=== PATIENT | female | born 1960 | race African-American/Black ===

== ENCOUNTER 2021-09-12 07:48 | Inpatient (IN) | payer MEDICAID ==
[~2021-09-12] VITALS: Ht 170.2 cm; Wt 64.6 kg
[2021-09-12 09:10] LABS: BASOPHILS % 0.6 % (0.0-2.0); EOSINOPHILS % 0.5 % (0.0-5.0); HEMATOCRIT. 44.3 % (36.0-48.0); HEMOGLOBIN. 14.5 g/dL (12.0-16.0); LYMPHOCYTES % 14.8 % (20.0-50.0); MEAN CORPUSCULAR HEMOGLOBIN 28.5 pg (28.0-32.0); MEAN CORPUSCULAR VOLUME 87.2 fL (81.0-99.0); MEAN PLATELET VOLUME 9.4 fl (7.4-10.4); MONOCYTES % 3.3 % (2.0-8.0); NEUTROPHILS % 80.8 % (40.0-76.0); PLATELET 202 x1000/uL (130-400); RED BLOOD CELL COUNT 5.08 mill/uL (4.2-5.4); RED CELL DISTRIBUTION WIDTH 15.5 % (11.6-14.6)
[2021-09-12 09:17] LABS: CHLORIDE 115 mEq/L (98-107)
[2021-09-12] MEDS ORDERED: DOCUSATE SODIUM 100MG CAPSULE PO PRN (13:15)
[2021-09-12] MEDS ORDERED: ZOLPIDEM TARTRATE 5MG TABLET PO PRN (13:15)
[2021-09-12] MEDS ORDERED: GUAIFENESIN 200MG/10ML SUGAR FREE UDC PO PRN (13:15)
[2021-09-12] MEDS ORDERED: ONDANSETRON HCL 4MG/2ML INJ IV PRN (13:15)
[2021-09-12] MEDS ORDERED: ACETAMINOPHEN 325MG TABLET PO PRN ×2 (13:15)
[2021-09-12] MEDS ORDERED: KETOROLAC 15MG/ML VIAL IV PRN (13:15)
[2021-09-12] MEDS ORDERED: NITROGLYCERIN 0.4MG TABLET SL SL PRN (13:15)
[2021-09-12] MEDS ORDERED: MAGNESIUM/ALUMINUM HYDROXIDE/SIMETHICONE 30ML UDC PO PRN (13:15)
[2021-09-12] MEDS ORDERED: CLONIDINE 0.1MG TABLET PO PRN (13:15)
[2021-09-12 13:53] LABS: ETHANOL BLOOD < 10 mg/dL; HDL CHOLESTEROL 63 mg/dL (40-59); LDL CHOLESTEROL 76 mg/dL (5-100); TOTAL IRON BINDING CAPACITY 240 ug/dL (250-450)
[2021-09-12] MEDS: IPRATROPIUM/ALBUTEROL 0.5-3(2.5)MG/3ML NEB NEB PRN (14:13)
[2021-09-12] MEDS: ENOXAPARIN 40MG/0.4ML SYR SUBCUT SCH (14:22)
[2021-09-12 14:28] LABS: VITAMIN B12 SERUM 461 pg/mL (211-911)
[2021-09-12 14:44] LABS: FOLIC ACID (FOLATE) SERUM > 20.00 ng/mL (>5.38)
[2021-09-12 15:50] VITALS: BP 129/106
[2021-09-12 17:00] VITALS: BP 129/106
[2021-09-12] MEDS ORDERED: ASPI-1406 MT (17:31)
[2021-09-12] MEDS ORDERED: CHOL2000 (17:31)
[2021-09-12] MEDS ORDERED: FURO-152 PO (17:31)
[2021-09-12] MEDS ORDERED: EMPA10TA MT (17:31)
[2021-09-12] MEDS ORDERED: METO25TA6 MT (17:31)
[2021-09-12] MEDS ORDERED: LOSA25TA26 MT (17:31)
[2021-09-12] MEDS ORDERED: BICT1TAB PO (17:31)
[2021-09-12] MEDS ORDERED: ATOR-2 MT (17:31)
[2021-09-12] MEDS ORDERED: CARV6.2548 MT (17:31)
[2021-09-12] MEDS: INSULIN LISPRO 100 UNITS/ML SUBCUT SCH ×2 (17:40→20:42)
[2021-09-12] MEDS ORDERED: DEXTROSE 50% WATER 50ML SYRINGE IV PRN (17:45)
[2021-09-12] MEDS ORDERED: *PATIENT'S OWN MEDICATION STORAGE XX SCH (18:45)
[2021-09-12 19:21] LABS: CREATINE KINASE MB FRACTION 2.7 ng/mL (0.5-3.6)
[2021-09-12 20:00] VITALS: BP 115/90
[2021-09-12] MEDS: FUROSEMIDE 40MG/4ML VIAL IVP SCH (20:40)
[2021-09-12] MEDS: BLOOD SUGAR DIAGNOSTIC STRIP TEST SCH (20:41)
[2021-09-12] MEDS: SPIRONOLACTONE 25MG TABLET PO SCH (20:41)
[2021-09-12] MEDS: ATORVASTATIN CALCIUM 40MG TABLET PO SCH (20:41)
[2021-09-12] MEDS: FAMOTIDINE 20MG TABLET PO SCH (20:41)
[2021-09-12 23:23] LABS: CREATINE KINASE MB FRACTION 2.9 ng/mL (0.5-3.6)
[2021-09-13] VITALS: BP 119/62
[2021-09-13 01:03] LABS: *AMPHETAMINES SCREEN URINE NEGATIVE (NEGATIVE); *BARBITURATES SCREEN URINE NEGATIVE (NEGATIVE); *BENZODIAZEPINES SCREEN URINE NEGATIVE (NEGATIVE); *COCAINE SCREEN URINE NEGATIVE (NEGATIVE); CANNABINOID URINE SCREEN NEGATIVE (NEGATIVE); METHADONE URINE SCREEN NEGATIVE (NEGATIVE); OPIATES URINE SCREEN NEGATIVE (NEGATIVE); PHENCYCLIDINE URINE SCREEN NEGATIVE (NEGATIVE)
[2021-09-13] MEDS: IPRATROPIUM/ALBUTEROL 0.5-3(2.5)MG/3ML NEB NEB PRN ×2 (03:31→10:02)
[2021-09-13 04:00] VITALS: BP 102/66
[2021-09-13] MEDS: BLOOD SUGAR DIAGNOSTIC STRIP TEST SCH ×4 (06:46→20:58)
[2021-09-13] MEDS: INSULIN LISPRO 100 UNITS/ML SUBCUT SCH ×4 (06:46→20:58)
[2021-09-13 07:38] LABS: BASOPHILS % 0.4 % (0.0-2.0); EOSINOPHILS % 2.7 % (0.0-5.0); HEMATOCRIT. 41.2 % (36.0-48.0); HEMOGLOBIN. 13.7 g/dL (12.0-16.0); LYMPHOCYTES % 30.4 % (20.0-50.0); MEAN CORPUSCULAR HEMOGLOBIN 29.1 pg (28.0-32.0); MEAN CORPUSCULAR VOLUME 87.3 fL (81.0-99.0); MEAN PLATELET VOLUME 9.5 fl (7.4-10.4); MONOCYTES % 5.8 % (2.0-8.0); NEUTROPHILS % 60.7 % (40.0-76.0); PLATELET 169 x1000/uL (130-400); RED BLOOD CELL COUNT 4.71 mill/uL (4.2-5.4); RED CELL DISTRIBUTION WIDTH 15.4 % (11.6-14.6)
[2021-09-13 07:44] LABS: CHLORIDE 113 mEq/L (98-107)
[2021-09-13 08:00] VITALS: BP 111/89
[2021-09-13] MEDS ORDERED: ASPIRIN 325MG EC TABLET PO SCH (09:00)
[2021-09-13] MEDS: FAMOTIDINE 20MG TABLET PO SCH ×2 (09:13→20:57)
[2021-09-13] MEDS: SPIRONOLACTONE 25MG TABLET PO SCH (09:14)
[2021-09-13] MEDS: LOSARTAN POTASSIUM 25 MG TABLET PO SCH (09:14)
[2021-09-13] MEDS: BIKTARVY PO SCH (09:15)
[2021-09-13] MEDS: JARDIANCE 10MG PO SCH (09:16)
[2021-09-13] MEDS: FUROSEMIDE 40MG/4ML VIAL IVP SCH ×2 (09:33→17:58)
[2021-09-13 12:00] VITALS: BP 103/69
[2021-09-13] MEDS: NICOTINE 14MG PATCH TD SCH (12:59)
[2021-09-13] MEDS: ENOXAPARIN 40MG/0.4ML SYR SUBCUT SCH (15:24)
[2021-09-13 16:00] VITALS: BP 107/74
[2021-09-13 20:00] VITALS: BP 92/52
[2021-09-13] MEDS: BUDESONIDE 0.5MG/2ML NEB HHN SCH (20:15)
[2021-09-13] MEDS: IPRATROPIUM/ALBUTEROL 0.5-3(2.5)MG/3ML NEB HHN SCH (20:15)
[2021-09-13] MEDS: ATORVASTATIN CALCIUM 40MG TABLET PO SCH (20:57)
[2021-09-14] VITALS: BP 99/71
[2021-09-14] MEDS: IPRATROPIUM/ALBUTEROL 0.5-3(2.5)MG/3ML NEB HHN SCH ×4 (02:02→19:55)
[2021-09-14 04:00] VITALS: BP 142/115
[2021-09-14] MEDS: FUROSEMIDE 40MG/4ML VIAL IVP SCH ×2 (05:02→17:16)
[2021-09-14] MEDS: BLOOD SUGAR DIAGNOSTIC STRIP TEST SCH ×4 (05:36→21:21)
[2021-09-14] MEDS: INSULIN LISPRO 100 UNITS/ML SUBCUT SCH ×4 (05:54→21:00)
[2021-09-14 08:00] VITALS: BP 139/115
[2021-09-14] MEDS: LOSARTAN POTASSIUM 25 MG TABLET PO SCH (08:26)
[2021-09-14] MEDS: SPIRONOLACTONE 25MG TABLET PO SCH (08:26)
[2021-09-14] MEDS: NICOTINE 14MG PATCH TD SCH (08:26)
[2021-09-14] MEDS: FAMOTIDINE 20MG TABLET PO SCH ×2 (08:27→21:22)
[2021-09-14] MEDS: BIKTARVY PO SCH (08:27)
[2021-09-14] MEDS: JARDIANCE 10MG PO SCH (08:27)
[2021-09-14] MEDS: ASPIRIN 81MG EC TABLET PO SCH (08:27)
[2021-09-14] MEDS: BUDESONIDE 0.5MG/2ML NEB HHN SCH ×2 (09:39→20:27)
[2021-09-14 12:00] VITALS: BP 91/69
[2021-09-14] MEDS ORDERED: PHENYTOIN SODIUM EXTENDED 100MG CAPSULE PO SCH (14:00)
[2021-09-14] MEDS: ENOXAPARIN 40MG/0.4ML SYR SUBCUT SCH (14:16)
[2021-09-14 16:00] VITALS: BP 94/59
[2021-09-14 20:00] VITALS: BP 99/65
[2021-09-14] MEDS: ATORVASTATIN CALCIUM 40MG TABLET PO SCH (21:22)
[2021-09-15] VITALS: BP 96/69
[2021-09-15] MEDS: IPRATROPIUM/ALBUTEROL 0.5-3(2.5)MG/3ML NEB HHN SCH ×4 (02:18→21:29)
[2021-09-15 04:00] VITALS: BP 104/75
[2021-09-15] MEDS: FUROSEMIDE 40MG/4ML VIAL IVP SCH ×2 (06:04→18:17)
[2021-09-15] MEDS: BLOOD SUGAR DIAGNOSTIC STRIP TEST SCH ×4 (06:40→20:14)
[2021-09-15] MEDS: INSULIN LISPRO 100 UNITS/ML SUBCUT SCH ×4 (06:41→20:44)
[2021-09-15 07:48] VITALS: BP 98/76
[2021-09-15] MEDS: LOSARTAN POTASSIUM 25 MG TABLET PO SCH (09:00)
[2021-09-15] MEDS: BIKTARVY PO SCH (10:11)
[2021-09-15] MEDS: ASPIRIN 81MG EC TABLET PO SCH (10:11)
[2021-09-15] MEDS: FAMOTIDINE 20MG TABLET PO SCH ×2 (10:11→20:14)
[2021-09-15] MEDS: NICOTINE 14MG PATCH TD SCH (10:11)
[2021-09-15] MEDS: JARDIANCE 10MG PO SCH (10:12)
[2021-09-15] MEDS: SPIRONOLACTONE 25MG TABLET PO SCH (10:23)
[2021-09-15] MEDS: BUDESONIDE 0.5MG/2ML NEB HHN SCH ×2 (10:51→21:34)
[2021-09-15 12:00] VITALS: BP 114/80
[2021-09-15] MEDS: ENOXAPARIN 40MG/0.4ML SYR SUBCUT SCH (13:31)
[2021-09-15 16:00] VITALS: BP 106/68
[2021-09-15 20:00] VITALS: BP 108/72
[2021-09-15] MEDS: ATORVASTATIN CALCIUM 40MG TABLET PO SCH (20:14)
[2021-09-16] VITALS: BP 114/86
[2021-09-16] MEDS: IPRATROPIUM/ALBUTEROL 0.5-3(2.5)MG/3ML NEB HHN SCH ×2 (01:55→15:11)
[2021-09-16 04:00] VITALS: BP 101/76
[2021-09-16 06:08] VITALS: BP 117/81
[2021-09-16] MEDS: FUROSEMIDE 40MG/4ML VIAL IVP SCH (06:08)
[2021-09-16] MEDS ORDERED: HEPARIN SODIUM 1,000 UNIT/1ML VIAL IV ONE (06:22)
[2021-09-16] MEDS ORDERED: NICARDIPINE 100MCG/ML 10ML VIAL (CATH LAB) IV ONE (06:22)
[2021-09-16] MEDS ORDERED: NITROGLYCERIN 50MCG/ML 10ML VIAL (CATH LAB) IV ONE (06:22)
[2021-09-16] MEDS: INSULIN LISPRO 100 UNITS/ML SUBCUT SCH ×2 (06:32→12:40)
[2021-09-16] MEDS: BLOOD SUGAR DIAGNOSTIC STRIP TEST SCH ×2 (06:32→12:10)
[2021-09-16 07:43] VITALS: BP 101/71
[2021-09-16] MEDS ORDERED: LIDOCAINE HCL 1% 10 MG/ML 10ML VIAL ONE (08:15)
[2021-09-16] MEDS ORDERED: MIDAZOLAM HCL 2 MG/2 ML VIAL ONE (08:15)
[2021-09-16] MEDS ORDERED: IODIXANOL 320MG/ML 100 ML BOTTLE IV ONE (08:16)
[2021-09-16] MEDS ORDERED: DIPHENHYDRAMINE 50MG/ML VIAL ONE (08:17)
[2021-09-16] MEDS ORDERED: FENTANYL CITRATE/PF 50MCG/ML 2ML VIAL ONE (08:17)
[2021-09-16] MEDS ORDERED: VERAPAMIL HCL 2.5 MG/1 ML 2ML VIAL IV ONE (08:17)
[2021-09-16] MEDS ORDERED: ATROPINE SULFATE 1MG/10ML SYR IV PRN (09:45)
[2021-09-16] MEDS ORDERED: ALD50 MT (10:18)
[2021-09-16] MEDS ORDERED: FURO-151 MT (10:18)
[2021-09-16] MEDS: LOSARTAN POTASSIUM 25 MG TABLET PO SCH (12:03)
[2021-09-16] MEDS: SPIRONOLACTONE 25MG TABLET PO SCH (12:03)
[2021-09-16] MEDS: FAMOTIDINE 20MG TABLET PO SCH (12:03)
[2021-09-16] MEDS: BIKTARVY PO SCH (12:03)
[2021-09-16] MEDS: NICOTINE 14MG PATCH TD SCH (12:03)
[2021-09-16] MEDS: ASPIRIN 81MG EC TABLET PO SCH (12:03)
[2021-09-16] MEDS: JARDIANCE 10MG PO SCH (12:04)
[2021-09-16 12:18] VITALS: BP 130/94
[2021-09-16] MEDS: ENOXAPARIN 40MG/0.4ML SYR SUBCUT SCH (14:00)
[2021-09-16 14:22] LABS: CHLORIDE 103 mEq/L (98-107)
[2021-09-16] MEDS: BUDESONIDE 0.5MG/2ML NEB HHN SCH (15:11)
== END 2021-09-16 17:20 | disposition home or self-care (01) | DRG 192 ==
LOC: ER 07:48 → 8WST 12:50 → EDBEDREQ 12:52 → EDBEDREQTM 12:52 → ENRESERV 13:16
PROVIDERS: ADMIT Internal Medicine; ATTEND Internal Medicine
PROC: 4A023N7 Measurement of Cardiac Sampling and Pressure, Left Heart, Percutaneous Approach (ICD-10-PCS; principal; 2021-09-16)
PROC: B211YZZ Fluoroscopy of Multiple Coronary Arteries using Other Contrast (ICD-10-PCS; 2021-09-16)
DX: I11.0 Hypertensive heart disease with heart failure (principal); J96.01 Acute respiratory failure with hypoxia; I21.4 Non-ST elevation (NSTEMI) myocardial infarction; I50.43 Acute on chronic combined systolic (congestive) and diastolic (congestive) heart failure; J44.9 Chronic obstructive pulmonary disease, unspecified; Z20.822 Contact with and (suspected) exposure to COVID-19; E78.00 Pure hypercholesterolemia, unspecified; E11.9 Type 2 diabetes mellitus without complications; E78.5 Hyperlipidemia, unspecified; Z21 Asymptomatic human immunodeficiency virus [HIV] infection status; I42.0 Dilated cardiomyopathy; I25.10 Atherosclerotic heart disease of native coronary artery without angina pectoris; F17.210 Nicotine dependence, cigarettes, uncomplicated; Z79.4 Long term (current) use of insulin
CPT/HCPCS: 36415; 71045; 80048; 80053; 80061; 80305; 80320; 82550; 82553; 82607; 82746; 82962; 83036; 83540; 83550; 83605; 83735; 83880; 84100; 84443; 84484; 85025; 87426; 93005; 93306; 93458; 93923; 93970; 94640; 94664; 99285; C1769; C1887; C1893; J1200; J1644; J1650; J1885; J1940; J2250; J3010; J3490; J7626; Q9967; G0480

== ENCOUNTER 2022-04-29 14:08 | Inpatient (IN) | payer MEDICAID ==
[~2022-04-29] VITALS: Ht 167.6 cm; Wt 54.9 kg
[2022-04-29] MEDS: ALBUTEROL (0.083%) 2.5MG/3ML NEB HHN SCH (00:58)
[2022-04-29] MEDS: IPRATROPIUM BROMIDE (0.02%) 0.5MG/2.5ML NEB HHN SCH (00:58)
[~2022-04-29 14:08] MED LIST: ASPI-1406 MT; ATOR-2 MT; BICT1TAB PO; CARV6.2548 MT; CHOL2000; EMPA10TA MT; FURO-152 PO; LOSA25TA26 MT; METO25TA6 MT
[2022-04-29] MEDS ORDERED: IPRATROPIUM/ALBUTEROL 0.5-3(2.5)MG/3ML NEB HHN ONE (14:30)
[2022-04-29] MEDS ORDERED: METHYLPREDNISOLONE SOD SUCC 125 MG/2 ML VIAL IV ONE (14:30)
[2022-04-29] MEDS ORDERED: MAGNESIUM 2 G PREMIX 50 ML IV ONE (14:30)
[2022-04-29 16:30] LABS: BASOPHILS % 0.6 % (0.0-2.0); EOSINOPHILS % 1.1 % (0.0-5.0); HEMATOCRIT. 51.1 % (36.0-48.0); HEMOGLOBIN. 16.7 g/dL (12.0-16.0); LYMPHOCYTES % 37.9 % (20.0-50.0); MEAN CORPUSCULAR VOLUME 91.6 fL (81.0-99.0); MEAN PLATELET VOLUME 9.2 fl (7.4-10.4); MONOCYTES % 13.6 % (2.0-8.0); NEUTROPHILS % 46.8 % (40.0-76.0); PLATELET 172 x1000/uL (130-400); RED BLOOD CELL COUNT 5.58 mill/uL (4.2-5.4); RED CELL DISTRIBUTION WIDTH 15.1 % (11.6-14.6)
[2022-04-29 16:32] LABS: INR 1.2; PROTHROMBIN TIME 12.7 sec (9.6-11.0)
[2022-04-29 16:33] LABS: CHLORIDE 107 mEq/L (98-107)
[2022-04-29] MEDS ORDERED: ASPIRIN 325MG EC TABLET PO ONE (17:00)
[2022-04-29] MEDS ORDERED: METHYLPREDNISOLONE SOD SUCC 125 MG/2 ML VIAL IV NR (17:15)
[2022-04-29] MEDS ORDERED: MAGNESIUM 2 G PREMIX 50 ML IV NR (17:30)
[2022-04-29] MEDS ORDERED: CLONIDINE 0.1MG TABLET PO PRN (17:45)
[2022-04-29] MEDS ORDERED: ACETAMINOPHEN 325MG TABLET PO PRN ×2 (17:45)
[2022-04-29] MEDS ORDERED: IPRATROPIUM/ALBUTEROL 0.5-3(2.5)MG/3ML NEB HHN SCH (17:45)
[2022-04-29] MEDS ORDERED: ONDANSETRON HCL 4MG/2ML INJ IV PRN (17:45)
[2022-04-29] MEDS ORDERED: DOCUSATE SODIUM 100MG CAPSULE PO PRN (17:45)
[2022-04-29] MEDS ORDERED: GUAIFENESIN 200MG/10ML SUGAR FREE UDC PO PRN (17:45)
[2022-04-29] MEDS ORDERED: ALBUTEROL (0.083%) 2.5MG/3ML NEB HHN PRN (18:00)
[2022-04-29] MEDS ORDERED: IPRATROPIUM BROMIDE (0.02%) 0.5MG/2.5ML NEB HHN PRN (18:00)
[2022-04-29] MEDS ORDERED: FUROSEMIDE 20MG TABLET PO SCH (19:00)
[2022-04-29] MEDS ORDERED: ASPIRIN 81MG TABLET PO NR (19:00)
[2022-04-29] MEDS ORDERED: ENOXAPARIN 30MG/0.3ML SYR SUBCUT SCH (20:00)
[2022-04-29] MEDS ORDERED: ATORVASTATIN CALCIUM 40MG TABLET PO SCH (21:00)
[2022-04-29] MEDS ORDERED: FAMOTIDINE 20MG TABLET PO SCH (21:00)
[2022-04-30 02:23] VITALS: BP 120/92
[2022-04-30 04:00] VITALS: BP 123/85
[2022-04-30] MEDS ORDERED: *PATIENT'S OWN MEDICATION STORAGE XX SCH (05:45)
[2022-04-30 08:00] VITALS: BP 137/89
[2022-04-30] MEDS: ALBUTEROL (0.083%) 2.5MG/3ML NEB HHN SCH ×3 (08:10→16:32)
[2022-04-30] MEDS: IPRATROPIUM BROMIDE (0.02%) 0.5MG/2.5ML NEB HHN SCH ×3 (08:10→16:31)
[2022-04-30] MEDS ORDERED: PREDNISONE 20MG TABLET PO SCH (09:00)
[2022-04-30] MEDS ORDERED: SPIRONOLACTONE 25MG TABLET PO SCH (09:00)
[2022-04-30] MEDS ORDERED: BUDESONIDE 0.25MG/2ML NEB HHN SCH (09:00)
[2022-04-30] MEDS ORDERED: LOSARTAN POTASSIUM 25 MG TABLET PO SCH (09:00)
[2022-04-30 12:00] VITALS: BP 114/84
[2022-04-30 12:14] LABS: CREATINE KINASE MB FRACTION 1.9 ng/mL (0.5-3.6)
[2022-04-30] MEDS ORDERED: P20 MT (14:11)
[2022-04-30 16:00] VITALS: BP 122/96
[2022-04-30 17:00] VITALS: BP 130/74
[2022-04-30] MEDS ORDERED: FUROSEMIDE 40MG/4ML VIAL IVP SCH (18:00)
[2022-05-01] MEDS ORDERED: PREDNISONE 20MG TABLET PO SCH (09:00)
[2022-05-02 09:10] LABS: ABSOLUTE EOSINOPHILS 0.2 x10E3/uL (0.0-0.4); ABSOLUTE LYMPHOCYTES 1.4 x10E3/uL (0.7-3.1); ABSOLUTE MONOCYTES 0.6 x10E3/uL (0.1-0.9); ABSOLUTE NEUTROPHILS 4.3 x10E3/uL (1.4-7.0); BASOPHILS 1 % (Not Estab.); HEMATOCRIT 54.1 % (34.0-46.6); HEMATOLOGY COMMENT Note: (.); HEMOGLOBIN 17.6 g/dL (11.1-15.9); IMMATURE GRANULOCYTES 0 % (Not Estab.); LYMPHOCYTES 21 % (Not Estab.); MEAN CORPUSCULAR HEMOGLOBIN 30.1 pg (26.6-33.0); MEAN CORPUSCULAR HGB CONC. 32.5 g/dL (31.5-35.7); MEAN CORPUSCULAR VOLUME 93 fL (79-97); MONOCYTES 10 % (Not Estab.); NEUTROPHILS 65 % (Not Estab.); PLATELETS 196 x10E3/uL (150-450); RBC 5.84 x10E6/uL (3.77-5.28); RED CELL DISTRIBUTION WIDTH 13.8 % (11.7-15.4); WBC 6.5 x10E3/uL (3.4-10.8)
[2022-05-02 13:06] LABS: % CD 3 POS. LYMPHOCYTES 61.3 % (57.5-86.2); % CD 4 POS. LYMPHOCYTES 37.2 % (30.8-58.5); % CD 8 POS. LYMPH 24.4 % (12.0-35.5); ABSOLUTE CD 3 858 /uL (622-2402); ABSOLUTE CD 4 HELPER 521 /uL (359-1519); ABSOLUTE CD 8 SUPPRESSOR 342 /uL (109-897); CD4/CD8 RATIO 1.52 (0.92-3.72)
[2022-05-09] MEDS ORDERED: LEVO-65 MT (09:50)
[2022-05-09] MEDS ORDERED: P20 PO (09:50)
== END 2022-04-30 17:45 | disposition home or self-care (01) | DRG 190 ==
LOC: ER 14:08 → MICUSO 16:55 → EDBEDREQ 16:57 → EDBEDREQTM 16:57 → 8WST 04-30 03:01
PROVIDERS: ADMIT Hospitalist; ATTEND Hospitalist
DX: I21.4 Non-ST elevation (NSTEMI) myocardial infarction (principal); J96.01 Acute respiratory failure with hypoxia; I50.23 Acute on chronic systolic (congestive) heart failure; J44.1 Chronic obstructive pulmonary disease with (acute) exacerbation; E78.5 Hyperlipidemia, unspecified; I25.10 Atherosclerotic heart disease of native coronary artery without angina pectoris; I42.0 Dilated cardiomyopathy; E78.00 Pure hypercholesterolemia, unspecified; Z20.822 Contact with and (suspected) exposure to COVID-19; F17.210 Nicotine dependence, cigarettes, uncomplicated; I11.0 Hypertensive heart disease with heart failure; E11.9 Type 2 diabetes mellitus without complications; Z79.82 Long term (current) use of aspirin; Z79.899 Other long term (current) drug therapy; Z79.84 Long term (current) use of oral hypoglycemic drugs; Z71.6 Tobacco abuse counseling
CPT/HCPCS: 36415; 71045; 80053; 80061; 82550; 82553; 83036; 83880; 84484; 85025; 86359; 86360; 87426; 93005; 93306; 93970; 94640; 99285; J2930; J3475

== ENCOUNTER 2022-05-06 02:15 | Inpatient (IN) | payer MEDICAID ==
[~2022-05-06] VITALS: Ht 198.1 cm; Wt 54.0 kg
[~2022-05-06 02:15] MED LIST changes: +P20 MT
[2022-05-06] MEDS ORDERED: METHYLPREDNISOLONE SOD SUCC 125 MG/2 ML VIAL IV STA (03:06)
[2022-05-06] MEDS ORDERED: IPRATROPIUM BROMIDE (0.02%) 0.5MG/2.5ML NEB HHN STA (03:06)
[2022-05-06 03:38] LABS: BG BASE EXCESS 3.1 mmol/L (-2.0-2.0); BG DEOXYHEMOGLOBIN 4.8 % (0.0-5.0); BG FRACTION INSPIRED OXYGEN 36; BG HCO3 ACT 26.7 mmol/L (22.0-26.0); BG METHEMOGLOBIN 0.4 % (0.0-1.5); BG OXYGEN SATURATION 95.1 % (92.0-98.5); BG OXYHEMOGLOBIN 93.8 % (94.0-97.0); BG PCO2 37.9 mmHg (35.0-45.0); BG PH 7.466 (7.350-7.450); BG SAMPLE SITE RIGHT BRACHIAL; BG TOTAL HEMOGLOBIN 16.4 g/dL (12.0-18.0); BG VENT MODE NASAL CANNULA
[2022-05-06] MEDS: ALBUTEROL (0.083%) 2.5MG/3ML NEB HHN SCH ×3 (03:45→04:29)
[2022-05-06] MEDS: MAGNESIUM 2 G PREMIX 50 ML IV ONE ×2 (04:03→07:01)
[2022-05-06 06:26] LABS: BASOPHILS % 0.3 % (0.0-2.0); EOSINOPHILS % 2.8 % (0.0-5.0); HEMATOCRIT. 46.8 % (36.0-48.0); HEMOGLOBIN. 15.6 g/dL (12.0-16.0); LYMPHOCYTES % 12.6 % (20.0-50.0); MEAN CORPUSCULAR HEMOGLOBIN 30.3 pg (28.0-32.0); MONOCYTES % 8.5 % (2.0-8.0); NEUTROPHILS % 75.8 % (40.0-76.0); PLATELET 245 x1000/uL (130-400); RED BLOOD CELL COUNT 5.14 mill/uL (4.2-5.4); RED CELL DISTRIBUTION WIDTH 15.1 % (11.6-14.6)
[2022-05-06] MEDS ORDERED: METHYLPREDNISOLONE SOD SUCC 125 MG/2 ML VIAL IV NR (07:15)
[2022-05-06] MEDS ORDERED: IPRATROPIUM/ALBUTEROL 0.5-3(2.5)MG/3ML NEB NEB PRN (07:15)
[2022-05-06] MEDS ORDERED: NITROGLYCERIN 0.4MG TABLET SL SL PRN (07:15)
[2022-05-06] MEDS ORDERED: MAGNESIUM/ALUMINUM HYDROXIDE/SIMETHICONE 30ML UDC PO PRN (07:15)
[2022-05-06] MEDS ORDERED: KETOROLAC 15MG/ML VIAL IV PRN (07:15)
[2022-05-06] MEDS ORDERED: DOCUSATE SODIUM 100MG CAPSULE PO PRN (07:15)
[2022-05-06] MEDS ORDERED: ONDANSETRON HCL 4MG/2ML INJ IV PRN (07:15)
[2022-05-06] MEDS ORDERED: ACETAMINOPHEN 325MG TABLET PO PRN ×2 (07:15)
[2022-05-06] MEDS ORDERED: CLONIDINE 0.1MG TABLET PO PRN (07:15)
[2022-05-06] MEDS ORDERED: CEFTRIAXONE 1 G PREMIX 50 ML IV SCH (08:00)
[2022-05-06] MEDS ORDERED: AZITHROMYCIN 500MG/250ML 250 ML IV NR (08:00)
[2022-05-06 08:05] LABS: CHLORIDE 109 mEq/L (98-107)
[2022-05-06] MEDS: ENOXAPARIN 40MG/0.4ML SYR SUBCUT SCH (10:00)
[2022-05-06 10:13] LABS: *AMPHETAMINES SCREEN URINE NEGATIVE (NEGATIVE); *BARBITURATES SCREEN URINE NEGATIVE (NEGATIVE); *BENZODIAZEPINES SCREEN URINE NEGATIVE (NEGATIVE); *COCAINE SCREEN URINE NEGATIVE (NEGATIVE); CANNABINOID URINE SCREEN NEGATIVE (NEGATIVE); METHADONE URINE SCREEN NEGATIVE (NEGATIVE); OPIATES URINE SCREEN NEGATIVE (NEGATIVE); PHENCYCLIDINE URINE SCREEN NEGATIVE (NEGATIVE)
[2022-05-06] MEDS: ZINC SULFATE 220 MG ( 50 ) CAPSULE PO SCH (10:55)
[2022-05-06] MEDS: SPIRONOLACTONE 25MG TABLET PO SCH ×2 (10:55→21:23)
[2022-05-06] MEDS: ASPIRIN 325MG EC TABLET PO SCH (10:55)
[2022-05-06] MEDS: ASCORBIC ACID 500 MG TABLET PO SCH ×2 (10:55→21:23)
[2022-05-06] MEDS: GUAIFENESIN 600MG ER TABLET PO SCH ×2 (11:05→21:23)
[2022-05-06] MEDS: FUROSEMIDE 40MG/4ML VIAL IVP SCH ×2 (11:05→21:23)
[2022-05-06 15:36] VITALS: BP 118/74
[2022-05-06 15:47] VITALS: BP 118/74
[2022-05-06 18:02] LABS: CREATINE KINASE MB FRACTION 3.9 ng/mL (0.5-3.6)
[2022-05-06 20:00] VITALS: BP 107/78
[2022-05-06] MEDS: IPRATROPIUM BROMIDE (0.02%) 0.5MG/2.5ML NEB HHN PRN (20:29)
[2022-05-06] MEDS: ALBUTEROL (0.083%) 2.5MG/3ML NEB HHN PRN (20:29)
[2022-05-06] MEDS ORDERED: ZOLPIDEM TARTRATE 5MG TABLET PO PRN (21:00)
[2022-05-06] MEDS ORDERED: *PATIENT'S OWN MEDICATION STORAGE XX SCH (21:45)
[2022-05-06 23:30] LABS: CREATINE KINASE MB FRACTION 2.8 ng/mL (0.5-3.6)
[2022-05-07] VITALS: BP 101/71
[2022-05-07] MEDS ORDERED: FLUT15.844 BOTHNSTRLS (02:23)
[2022-05-07] MEDS ORDERED: UMEC62.5 IH (02:23)
[2022-05-07] MEDS ORDERED: P20 PO (02:23)
[2022-05-07] MEDS ORDERED: SPIR25TA6 PO (02:23)
[2022-05-07] MEDS: IPRATROPIUM BROMIDE (0.02%) 0.5MG/2.5ML NEB HHN PRN ×2 (03:13→09:21)
[2022-05-07] MEDS: ALBUTEROL (0.083%) 2.5MG/3ML NEB HHN PRN ×2 (03:13→09:21)
[2022-05-07 04:00] VITALS: BP 100/66
[2022-05-07] MEDS: GUAIFENESIN 200MG/10ML SUGAR FREE UDC PO PRN (05:14)
[2022-05-07 06:41] LABS: CHLORIDE 103 mEq/L (98-107)
[2022-05-07 06:48] LABS: PHOSPHORUS 4.1 mg/dL (2.5-4.9)
[2022-05-07 07:00] LABS: HEMATOCRIT. 47.6 % (36.0-48.0); HEMOGLOBIN. 15.8 g/dL (12.0-16.0); MEAN CORPUSCULAR HEMOGLOBIN 30.6 pg (28.0-32.0); MEAN CORPUSCULAR VOLUME 91.9 fL (81.0-99.0); MEAN PLATELET VOLUME 9.1 fl (7.4-10.4); PLATELET 266 x1000/uL (130-400); RED BLOOD CELL COUNT 5.18 mill/uL (4.2-5.4); RED CELL DISTRIBUTION WIDTH 14.9 % (11.6-14.6)
[2022-05-07 08:00] VITALS: BP 129/86
[2022-05-07] MEDS ORDERED: AZITHROMYCIN 500 MG in DEXT 5% WATER 250 ML IV SCH (09:00)
[2022-05-07] MEDS: FUROSEMIDE 40MG/4ML VIAL IVP SCH ×2 (09:03→20:54)
[2022-05-07] MEDS: ASPIRIN 325MG EC TABLET PO SCH (09:04)
[2022-05-07] MEDS: SPIRONOLACTONE 25MG TABLET PO SCH ×2 (09:04→20:53)
[2022-05-07] MEDS: ZINC SULFATE 220 MG ( 50 ) CAPSULE PO SCH (09:04)
[2022-05-07] MEDS: BIKTARVY 50-200-25MG PO SCH (09:04)
[2022-05-07] MEDS: ASCORBIC ACID 500 MG TABLET PO SCH ×2 (09:04→20:53)
[2022-05-07] MEDS: GUAIFENESIN 600MG ER TABLET PO SCH ×2 (09:04→20:54)
[2022-05-07] MEDS: ENOXAPARIN 40MG/0.4ML SYR SUBCUT SCH (09:20)
[2022-05-07] MEDS: CEFTRIAXONE 1,000 MG in DEXTROSE 5% WATER 50 ML IV SCH (11:12)
[2022-05-07 12:00] VITALS: BP 136/55
[2022-05-07 16:00] VITALS: BP_SYST 80
[2022-05-07 16:58] LABS: PLATELET ESTIMATE NORMAL
[2022-05-07 20:00] VITALS: BP 106/75
[2022-05-08] VITALS: BP 111/58
[2022-05-08] MEDS: IPRATROPIUM BROMIDE (0.02%) 0.5MG/2.5ML NEB HHN PRN ×4 (00:12→21:31)
[2022-05-08] MEDS: ALBUTEROL (0.083%) 2.5MG/3ML NEB HHN PRN ×4 (00:12→21:31)
[2022-05-08] MEDS: GUAIFENESIN 200MG/10ML SUGAR FREE UDC PO PRN (00:14)
[2022-05-08 04:00] VITALS: BP 102/74
[2022-05-08 08:00] VITALS: BP 102/71
[2022-05-08] MEDS: SPIRONOLACTONE 25MG TABLET PO SCH ×2 (09:00→21:51)
[2022-05-08 09:07] LABS: % CD 3 POS. LYMPHOCYTES 44.2 % (57.5-86.2); % CD 4 POS. LYMPHOCYTES 22.1 % (30.8-58.5); % CD 8 POS. LYMPH 21.1 % (12.0-35.5); ABSOLUTE CD 3 354 /uL (622-2402); ABSOLUTE CD 4 HELPER 177 /uL (359-1519); ABSOLUTE CD 8 SUPPRESSOR 169 /uL (109-897); ABSOLUTE LYMPHOCYTES 0.8 x10E3/uL (0.7-3.1); ABSOLUTE MONOCYTES 0.2 x10E3/uL (0.1-0.9); ABSOLUTE NEUTROPHILS 11.3 x10E3/uL (1.4-7.0); BASOPHILS 0 % (Not Estab.); CD4/CD8 RATIO 1.05 (0.92-3.72); HEMATOLOGY COMMENT Note: (.); HEMOGLOBIN 16.4 g/dL (11.1-15.9); IMMATURE GRANULOCYTES 1 % (Not Estab.); IMMATURE GRANULOCYTES ABSOLUTE 0.1 x10E3/uL (0.0-0.1); LYMPHOCYTES 6 % (Not Estab.); MEAN CORPUSCULAR HEMOGLOBIN 30.1 pg (26.6-33.0); MEAN CORPUSCULAR HGB CONC. 32.8 g/dL (31.5-35.7); MEAN CORPUSCULAR VOLUME 92 fL (79-97); MONOCYTES 2 % (Not Estab.); NEUTROPHILS 91 % (Not Estab.); PLATELETS 159 x10E3/uL (150-450); RBC 5.45 x10E6/uL (3.77-5.28); RED CELL DISTRIBUTION WIDTH 13.7 % (11.7-15.4); WBC 12.4 x10E3/uL (3.4-10.8)
[2022-05-08] MEDS: ZINC SULFATE 220 MG ( 50 ) CAPSULE PO SCH (09:17)
[2022-05-08] MEDS: FUROSEMIDE 40MG/4ML VIAL IVP SCH ×2 (09:17→21:51)
[2022-05-08] MEDS: ASPIRIN 325MG EC TABLET PO SCH (09:17)
[2022-05-08] MEDS: GUAIFENESIN 600MG ER TABLET PO SCH ×2 (09:17→21:49)
[2022-05-08] MEDS: ASCORBIC ACID 500 MG TABLET PO SCH ×2 (09:18→21:50)
[2022-05-08] MEDS: BIKTARVY 50-200-25MG PO SCH (09:18)
[2022-05-08] MEDS: AZITHROMYCIN 500 MG in DEXT 5% WATER 250 ML IV SCH (09:18)
[2022-05-08] MEDS: ENOXAPARIN 40MG/0.4ML SYR SUBCUT SCH (09:18)
[2022-05-08] MEDS: CEFTRIAXONE 1,000 MG in DEXTROSE 5% WATER 50 ML IV SCH (11:33)
[2022-05-08 12:00] VITALS: BP 100/62
[2022-05-08 16:00] VITALS: BP 103/73
[2022-05-09 03:54] VITALS: BP 96/65
[2022-05-09 08:00] VITALS: BP 108/79
[2022-05-09] MEDS: ALBUTEROL (0.083%) 2.5MG/3ML NEB HHN PRN ×2 (08:43→11:53)
[2022-05-09] MEDS: ZINC SULFATE 220 MG ( 50 ) CAPSULE PO SCH (08:43)
[2022-05-09] MEDS: BIKTARVY 50-200-25MG PO SCH (08:44)
[2022-05-09] MEDS: GUAIFENESIN 600MG ER TABLET PO SCH (08:44)
[2022-05-09] MEDS: SPIRONOLACTONE 25MG TABLET PO SCH (08:44)
[2022-05-09] MEDS: ASPIRIN 325MG EC TABLET PO SCH (08:44)
[2022-05-09] MEDS: ASCORBIC ACID 500 MG TABLET PO SCH (08:44)
[2022-05-09] MEDS: IPRATROPIUM BROMIDE (0.02%) 0.5MG/2.5ML NEB HHN PRN ×2 (08:44→11:53)
[2022-05-09] MEDS: FUROSEMIDE 40MG/4ML VIAL IVP SCH (08:44)
[2022-05-09] MEDS ORDERED: LEVO-65 MT (09:50)
[2022-05-09] MEDS ORDERED: P20 PO (09:50)
[2022-05-09] MEDS: ENOXAPARIN 40MG/0.4ML SYR SUBCUT SCH (10:00)
[2022-05-09] MEDS: CEFTRIAXONE 1,000 MG in DEXTROSE 5% WATER 50 ML IV SCH (11:13)
[2022-05-09] MEDS: AZITHROMYCIN 500 MG in DEXT 5% WATER 250 ML IV SCH (11:15)
[2022-05-09 12:18] VITALS: BP 100/65
== END 2022-05-09 15:40 | disposition home or self-care (01) | DRG 194 ==
LOC: ER 02:23 → 8WST 05:33 → EDBEDREQ 05:40 → EDBEDREQTM 05:40 → ENRESERV 13:01
PROVIDERS: ADMIT Internal Medicine; ATTEND Internal Medicine
DX: I50.33 Acute on chronic diastolic (congestive) heart failure (principal); J96.01 Acute respiratory failure with hypoxia; I21.4 Non-ST elevation (NSTEMI) myocardial infarction; Z99.81 Dependence on supplemental oxygen; Z20.822 Contact with and (suspected) exposure to COVID-19; I25.10 Atherosclerotic heart disease of native coronary artery without angina pectoris; J44.9 Chronic obstructive pulmonary disease, unspecified; I42.9 Cardiomyopathy, unspecified
CPT/HCPCS: 36415; 36600; 71045; 80053; 80305; 82375; 82550; 82553; 82805; 83605; 83735; 83880; 84100; 84145; 84484; 85025; 85379; 86359; 86360; 87426; 93970; 94640; 99291; C9803; J0456; J0696; J1650; J1940; J2930; J3475; J7060

== ENCOUNTER 2022-08-02 07:50 | Inpatient (IN) | payer MEDICAID ==
[~2022-08-02] VITALS: Ht 170.2 cm; Wt 68.0 kg
[~2022-08-02 07:50] MED LIST changes: +FLUT15.844 BOTHNSTRLS; +LEVO-65 MT; -P20 MT; +P20 PO; +SPIR25TA6 PO; +UMEC62.5 IH
[2022-08-02] MEDS ORDERED: METHYLPREDNISOLONE SOD SUCC 125 MG/2 ML VIAL IV STA (08:07)
[2022-08-02] MEDS ORDERED: IPRATROPIUM BROMIDE (0.02%) 0.5MG/2.5ML NEB HHN STA (08:07)
[2022-08-02] MEDS ORDERED: NITROGLYCERIN 0.4MG TABLET SL SL PRN (08:15)
[2022-08-02] MEDS ORDERED: ASPIRIN 81MG TABLET PO ONE (08:15)
[2022-08-02] MEDS: ALBUTEROL (0.083%) 2.5MG/3ML NEB HHN SCH ×3 (09:05→09:55)
[2022-08-02 09:13] LABS: BASOPHILS % 0.9 % (0.0-2.0); EOSINOPHILS % 4.1 % (0.0-5.0); HEMATOCRIT. 47.3 % (36.0-48.0); HEMOGLOBIN. 16.3 g/dL (12.0-16.0); LYMPHOCYTES % 38.3 % (20.0-50.0); MEAN CORPUSCULAR HEMOGLOBIN 31.2 pg (28.0-32.0); MEAN CORPUSCULAR VOLUME 90.5 fL (81.0-99.0); MEAN PLATELET VOLUME 9.5 fl (7.4-10.4); MONOCYTES % 8.8 % (2.0-8.0); NEUTROPHILS % 47.9 % (40.0-76.0); PLATELET 168 x1000/uL (130-400); RED BLOOD CELL COUNT 5.23 mill/uL (4.2-5.4)
[2022-08-02 09:23] LABS: CHLORIDE 111 mEq/L (98-107); INR 1.2; PARTIAL THROMBOPLASTIN TIME 26.3 sec (23.4-31.0)
[2022-08-02] MEDS ORDERED: MORPHINE SULFATE 4 MG/ML CPJ (NOT FOR IM USE) IV ONE (12:45)
[2022-08-02] MEDS ORDERED: IOHEXOL-350 100 ML BOTTLE ONE (15:12)
[2022-08-02 15:45] VITALS: BP 108/83
[2022-08-02] MEDS ORDERED: ONDANSETRON HCL 4MG/2ML INJ IV PRN (15:45)
[2022-08-02] MEDS ORDERED: MAGNESIUM/ALUMINUM HYDROXIDE/SIMETHICONE 30ML UDC PO PRN (15:45)
[2022-08-02] MEDS ORDERED: MAGNESIUM HYDROXIDE 400MG/5ML 30ML UDC PO PRN (15:45)
[2022-08-02] MEDS ORDERED: DIPHENHYDRAMINE 50MG/ML VIAL IV PRN (15:45)
[2022-08-02] MEDS ORDERED: ACETAMINOPHEN 325MG TABLET PO PRN (15:45)
[2022-08-02] MEDS ORDERED: IPRATROPIUM/ALBUTEROL 0.5-3(2.5)MG/3ML NEB HHN PRN (15:45)
[2022-08-02 16:00] VITALS: BP 108/83
[2022-08-02] MEDS ORDERED: SACU1TAB MT (16:33)
[2022-08-02] MEDS ORDERED: EMPA10TA MT (16:33)
[2022-08-02] MEDS ORDERED: FLUT1DIS3 INH (16:33)
[2022-08-02] MEDS ORDERED: SPIR50TA5 MT (16:33)
[2022-08-02] MEDS: DOCUSATE SODIUM 100MG CAPSULE PO SCH (18:33)
[2022-08-02] MEDS: METHYLPREDNISOLONE SOD SUCC 125 MG/2 ML VIAL IV SCH ×2 (18:34→21:19)
[2022-08-02] MEDS: FUROSEMIDE 40MG/4ML VIAL IVP SCH (18:34)
[2022-08-02] MEDS: ENOXAPARIN 40MG/0.4ML SYR SUBCUT SCH (18:35)
[2022-08-02] MEDS ORDERED: *PATIENT'S OWN MEDICATION STORAGE XX SCH (19:00)
[2022-08-02 20:00] VITALS: BP 108/61
[2022-08-02] MEDS: BUDESONIDE 0.5MG/2ML NEB HHN SCH (20:28)
[2022-08-02] MEDS: IPRATROPIUM/ALBUTEROL 0.5-3(2.5)MG/3ML NEB HHN SCH (20:32)
[2022-08-02] MEDS: ACETAMINOPHEN 325MG TABLET PO PRN (21:18)
[2022-08-02] MEDS: ZOLPIDEM TARTRATE 5MG TABLET PO PRN (21:18)
[2022-08-02] MEDS: OMEPRAZOLE 20MG CAPSULE EXTENDED RELEASE PO SCH (21:18)
[2022-08-02] MEDS: ATORVASTATIN CALCIUM 40MG TABLET PO SCH (21:19)
[2022-08-02] MEDS: SODIUM CHLORIDE 0.9% INJ 3ML FLUSH IVF SCH (22:00)
[2022-08-03] VITALS: BP 106/64
[2022-08-03] MEDS: IPRATROPIUM/ALBUTEROL 0.5-3(2.5)MG/3ML NEB HHN SCH ×5 (02:24→21:07)
[2022-08-03 04:00] VITALS: BP 112/70
[2022-08-03] MEDS: SODIUM CHLORIDE 0.9% INJ 3ML FLUSH IVF SCH ×3 (06:00→21:49)
[2022-08-03] MEDS: BUDESONIDE 0.5MG/2ML NEB HHN SCH ×3 (06:00→21:07)
[2022-08-03] MEDS: OMEPRAZOLE 20MG CAPSULE EXTENDED RELEASE PO SCH (06:35)
[2022-08-03] MEDS: METHYLPREDNISOLONE SOD SUCC 125 MG/2 ML VIAL IV SCH ×3 (06:35→21:48)
[2022-08-03] MEDS: ACETAMINOPHEN 325MG TABLET PO PRN ×2 (06:35→10:01)
[2022-08-03 07:25] LABS: BASOPHILS % 0.1 % (0.0-2.0); HEMATOCRIT. 48.4 % (36.0-48.0); HEMOGLOBIN. 16.5 g/dL (12.0-16.0); LYMPHOCYTES % 9.2 % (20.0-50.0); MEAN CORPUSCULAR HEMOGLOBIN 30.7 pg (28.0-32.0); MEAN CORPUSCULAR VOLUME 90.2 fL (81.0-99.0); MEAN PLATELET VOLUME 9.7 fl (7.4-10.4); MONOCYTES % 1.8 % (2.0-8.0); NEUTROPHILS % 88.9 % (40.0-76.0); PLATELET 178 x1000/uL (130-400); RED BLOOD CELL COUNT 5.37 mill/uL (4.2-5.4); RED CELL DISTRIBUTION WIDTH 15.1 % (11.6-14.6)
[2022-08-03 07:29] LABS: CHLORIDE 106 mEq/L (98-107)
[2022-08-03 07:34] LABS: PHOSPHORUS 3.8 mg/dL (2.5-4.9)
[2022-08-03 08:00] VITALS: BP 110/63
[2022-08-03] MEDS: DOCUSATE SODIUM 100MG CAPSULE PO SCH ×2 (09:00→17:00)
[2022-08-03] MEDS ORDERED: SPIRONOLACTONE 25MG TABLET PO SCH (09:00)
[2022-08-03] MEDS: FUROSEMIDE 40MG/4ML VIAL IVP SCH (10:00)
[2022-08-03] MEDS: SPIRONOLACTONE 50MG TABLET PO SCH (10:00)
[2022-08-03] MEDS ORDERED: POTASSIUM CHLORIDE 20MEQ TABLET SR PO NR (10:15)
[2022-08-03 12:00] VITALS: BP 92/57
[2022-08-03] MEDS ORDERED: BICT1TAB PO (14:18)
[2022-08-03] MEDS ORDERED: TRAMADOL 50MG TABLET PO PRN ×2 (14:30)
[2022-08-03] MEDS ORDERED: NALOXONE HCL 0.4MG/ML VIAL IV PRN (14:45)
[2022-08-03] MEDS: LIDOCAINE 5% PATCH TOP SCH (15:01)
[2022-08-03] MEDS: BIKTARVY 50-200-25MG TABLET PO SCH (15:08)
[2022-08-03 16:00] VITALS: BP 107/70
[2022-08-03] MEDS: SACUBITRIL/VALSARTAN 24MG/26MG TABLET PO SCH (17:00)
[2022-08-03] MEDS: ENOXAPARIN 40MG/0.4ML SYR SUBCUT SCH (18:35)
[2022-08-03 20:00] VITALS: BP 94/61
[2022-08-03] MEDS: CARVEDILOL 3.125 MG TABLET PO SCH (20:53)
[2022-08-03] MEDS ORDERED: MEDICATION NOT ON FORMULARY EA (Atorvastatin Calcium 1 TAB) MT SCH (21:00)
[2022-08-03] MEDS ORDERED: CARVEDILOL 6.25 MG TABLET PO SCH (21:00)
[2022-08-03] MEDS: ATORVASTATIN CALCIUM 40MG TABLET PO SCH (21:48)
[2022-08-04] VITALS: BP 121/71
[2022-08-04] MEDS: ZOLPIDEM TARTRATE 5MG TABLET PO PRN ×2 (01:49→23:15)
[2022-08-04] MEDS: ACETAMINOPHEN 325MG TABLET PO PRN ×3 (01:50→20:11)
[2022-08-04 04:00] VITALS: BP 112/87
[2022-08-04] MEDS: IPRATROPIUM/ALBUTEROL 0.5-3(2.5)MG/3ML NEB HHN SCH ×3 (04:10→16:43)
[2022-08-04] MEDS: SODIUM CHLORIDE 0.9% INJ 3ML FLUSH IVF SCH ×3 (05:13→20:11)
[2022-08-04] MEDS: METHYLPREDNISOLONE SOD SUCC 125 MG/2 ML VIAL IV SCH ×3 (05:13→21:06)
[2022-08-04 08:00] VITALS: BP 97/60
[2022-08-04] MEDS: CARVEDILOL 3.125 MG TABLET PO SCH ×2 (09:00→20:11)
[2022-08-04] MEDS: SACUBITRIL/VALSARTAN 24MG/26MG TABLET PO SCH ×2 (09:00→17:02)
[2022-08-04] MEDS: ASPIRIN 81MG EC TABLET PO SCH (09:47)
[2022-08-04] MEDS: BIKTARVY 50-200-25MG TABLET PO SCH (09:48)
[2022-08-04] MEDS: LIDOCAINE 5% PATCH TOP SCH (09:50)
[2022-08-04] MEDS: FUROSEMIDE 40MG TABLET PO SCH (09:51)
[2022-08-04] MEDS: SPIRONOLACTONE 50MG TABLET PO SCH (09:51)
[2022-08-04] MEDS: DOCUSATE SODIUM 100MG CAPSULE PO SCH ×2 (09:51→17:03)
[2022-08-04] MEDS: FAMOTIDINE 20MG TABLET PO SCH (09:52)
[2022-08-04 10:21] LABS: HEMATOCRIT 50.4 % (36.0-48.0); HEMOGLOBIN 16.6 g/dL (12.0-16.0); MEAN CORPUSCULAR HEMOGLOBIN 30.6 pg (28.0-32.0); PLATELET 161 x1000/uL (130-400); RED BLOOD CELL COUNT 5.42 mill/uL (4.2-5.4); RED CELL DISTRIBUTION WIDTH 15.4 % (11.6-14.6)
[2022-08-04] MEDS: BUDESONIDE 0.5MG/2ML NEB HHN SCH (10:37)
[2022-08-04 11:37] LABS: CHLORIDE 109 mEq/L (98-107)
[2022-08-04 11:56] LABS: CREATINE KINASE 63 IU/L (26-192); CREATINE KINASE MB FRACTION 2.9 ng/mL (0.5-3.6)
[2022-08-04 12:00] VITALS: BP 96/73
[2022-08-04 16:00] VITALS: BP 127/73
[2022-08-04] MEDS: ENOXAPARIN 40MG/0.4ML SYR SUBCUT SCH (17:02)
[2022-08-04 20:00] VITALS: BP 105/72
[2022-08-04] MEDS: ATORVASTATIN CALCIUM 40MG TABLET PO SCH (20:10)
[2022-08-05] VITALS: BP 104/47
[2022-08-05] MEDS: IPRATROPIUM/ALBUTEROL 0.5-3(2.5)MG/3ML NEB HHN SCH ×3 (02:10→14:03)
[2022-08-05 04:00] VITALS: BP_SYST 109; BP_SYST 113; BP_DIAS 57; BP_DIAS 62
[2022-08-05] MEDS: ACETAMINOPHEN 325MG TABLET PO PRN ×2 (05:13→11:35)
[2022-08-05] MEDS: METHYLPREDNISOLONE SOD SUCC 125 MG/2 ML VIAL IV SCH ×2 (05:13→13:17)
[2022-08-05] MEDS: SODIUM CHLORIDE 0.9% INJ 3ML FLUSH IVF SCH ×2 (05:18→13:17)
[2022-08-05 08:00] VITALS: BP 116/74
[2022-08-05] MEDS ORDERED: LOSARTAN POTASSIUM 25 MG TABLET PO SCH (08:00)
[2022-08-05] MEDS: BUDESONIDE 0.5MG/2ML NEB HHN SCH (08:17)
[2022-08-05] MEDS ORDERED: SPIRONOLACTONE 25MG TABLET PO SCH (09:00)
[2022-08-05] MEDS: LIDOCAINE 5% PATCH TOP SCH (09:04)
[2022-08-05] MEDS: BIKTARVY 50-200-25MG TABLET PO SCH (09:04)
[2022-08-05] MEDS: SACUBITRIL/VALSARTAN 24MG/26MG TABLET PO SCH (09:05)
[2022-08-05] MEDS: CARVEDILOL 3.125 MG TABLET PO SCH (09:07)
[2022-08-05] MEDS: FAMOTIDINE 20MG TABLET PO SCH (09:08)
[2022-08-05] MEDS: DOCUSATE SODIUM 100MG CAPSULE PO SCH (09:08)
[2022-08-05] MEDS: ASPIRIN 81MG EC TABLET PO SCH (09:08)
[2022-08-05] MEDS: FUROSEMIDE 40MG TABLET PO SCH (09:08)
[2022-08-05 10:42] VITALS: BP 116/74
== END 2022-08-05 15:29 | disposition home health service (06) | DRG 194 ==
LOC: ER 08:05 → 7EST 13:51 → EDBEDREQTM 13:52 → EDBEDREQ 13:52
PROVIDERS: ADMIT Internal Medicine; ATTEND Internal Medicine
DX: I11.0 Hypertensive heart disease with heart failure (principal); B20 Human immunodeficiency virus [HIV] disease; I42.9 Cardiomyopathy, unspecified; R65.10 Systemic inflammatory response syndrome (SIRS) of non-infectious origin without acute organ dysfunction; I50.23 Acute on chronic systolic (congestive) heart failure; J44.9 Chronic obstructive pulmonary disease, unspecified; E11.9 Type 2 diabetes mellitus without complications; I25.10 Atherosclerotic heart disease of native coronary artery without angina pectoris; M47.22 Other spondylosis with radiculopathy, cervical region
CPT/HCPCS: 36415; 71045; 71275; 72141; 72146; 80048; 80053; 82550; 82553; 83735; 83880; 84100; 84484; 85025; 85027; 93005; 93306; 94640; 99285; J1650; J1940; J2270; J2930; J7626; Q9967

== ENCOUNTER 2022-11-18 13:12 | Inpatient (IN) | payer MEDICAID ==
[~2022-11-18] VITALS: Ht 170.2 cm; Wt 58.5 kg
[~2022-11-18 13:12] MED LIST changes: +ALD50 PO; -ATOR-2 MT; +ATOR-2 PO; -CARV6.2548 MT; -CHOL2000; +CHOL200059; -EMPA10TA MT; +EMPA10TA PO; -FLUT15.844 BOTHNSTRLS; +FLUT1BLS12 IH; -FURO-152 PO; +FURO20TA4 PO; -LEVO-65 MT; -LOSA25TA26 MT; -METO25TA6 MT; +NAPR-679 PO; -P20 PO; +SACU1TAB PO; -SPIR25TA6 PO
[2022-11-18] MEDS ORDERED: METHYLPREDNISOLONE SOD SUCC 125MG/2ML (ACT-O-VIAL) IV STA (13:38)
[2022-11-18] MEDS ORDERED: IPRATROPIUM BROMIDE (0.02%) 0.5MG/2.5ML NEB HHN STA (13:38)
[2022-11-18] MEDS ORDERED: ALBUTEROL (0.083%) 2.5MG/3ML NEB HHN SCH (14:00)
[2022-11-18 15:15] LABS: BASOPHILS % 0.7 % (0.0-2.0); EOSINOPHILS % 1.9 % (0.0-5.0); HEMATOCRIT. 44.8 % (36.0-48.0); HEMOGLOBIN. 14.5 g/dL (12.0-16.0); LYMPHOCYTES % 30.8 % (20.0-50.0); MEAN CORPUSCULAR HEMOGLOBIN 31.3 pg (28.0-32.0); MEAN CORPUSCULAR HGB CONC 32.4 g/dL (31.0-37.0); MEAN CORPUSCULAR VOLUME 96.4 fL (81.0-99.0); MEAN PLATELET VOLUME 9.7 fl (7.4-10.4); MONOCYTES % 9.5 % (2.0-8.0); NEUTROPHILS % 57.1 % (40.0-76.0); PLATELET 172 x1000/uL (130-400); RED BLOOD CELL COUNT 4.65 mill/uL (4.2-5.4); RED CELL DISTRIBUTION WIDTH 15.7 % (11.6-14.6); WHITE BLOOD COUNT 5.1 x1000/uL (4.5-11.0)
[2022-11-18 15:29] LABS: CHLORIDE 111 mEq/L (98-107); INDEX HEMOLYSI 1 (1-3); INDEX ICTERIC 1 (1-4); INDEX LIPEMIC 1 (1-3); POTASSIUM 2.9 mEq/L (3.5-5.1); SODIUM 144 mEq/L (136-145)
[2022-11-18 15:31] VITALS: PULSE 111; RESP 20; O2SAT 100
[2022-11-18 15:40] LABS: ALANINE AMINOTRANSFERASE 18 IU/L (13-61); ALBUMIN 3.3 g/dL (3.4-5.0); ASPARTATE AMINOTRANSFERASE 15 IU/L (15-37); BILIRUBIN TOTAL 1.3 mg/dL (0.1-1.0); CALCIUM 8.7 mg/dL (8.5-10.1); CARBON DIOXIDE 27 mEq/L (21-32); CREATININE 1.2 mg/dL (0.6-1.3); GLUCOSE 103 mg/dL (70-105); NT PRO B-TYPE NATRIURETIC PEP 8805 pg/mL (5-125); PROTEIN TOTAL 5.8 g/dL (6.0-8.3); UREA NITROGEN BLOOD 14 mg/dL (7-21)
[2022-11-18 15:55] LABS: TROPONIN I HIGH SENSITIVITY 121 ng/L (<54)
[2022-11-18] MEDS ORDERED: FUROSEMIDE 40MG/4ML VIAL IVP ONE (16:30)
[2022-11-18] MEDS ORDERED: POTASSIUM CHLORIDE INJ 40 MEQ in DEXT 5% WATER 250 ML IV STA (18:04)
[2022-11-18] MEDS ORDERED: IPRATROPIUM/ALBUTEROL 0.5-3(2.5)MG/3ML NEB HHN PRN (18:15)
[2022-11-18] MEDS ORDERED: MAGNESIUM/ALUMINUM HYDROXIDE/SIMETHICONE 30ML UDC PO PRN (18:15)
[2022-11-18] MEDS ORDERED: ACETAMINOPHEN 325MG TABLET PO PRN (18:15)
[2022-11-18] MEDS ORDERED: CLONIDINE 0.1MG TABLET PO PRN (18:15)
[2022-11-18] MEDS ORDERED: DOCUSATE SODIUM 100MG CAPSULE PO PRN (18:15)
[2022-11-18] MEDS ORDERED: DEXTROSE 50% WATER 50ML SYRINGE IV PRN (18:15)
[2022-11-18] MEDS ORDERED: POTASSIUM CHLORIDE 20MEQ/PACKET PO NR (18:45)
[2022-11-18] MEDS: KCL 20MEQ/100ML X 2 FOR TOTAL KCL 40MEQ/200ML IV NR ×2 (19:30→21:30)
[2022-11-18 20:00] VITALS: BP 136/98; PULSE 82; RESP 20; TEMP 97.1
[2022-11-18] MEDS: BLOOD SUGAR DIAGNOSTIC STRIP TEST SCH (21:00)
[2022-11-18] MEDS ORDERED: BUDESONIDE 0.25MG/2ML NEB HHN SCH (21:00)
[2022-11-18] MEDS ORDERED: BUDESONIDE 0.5MG/2ML NEB HHN SCH (21:15)
[2022-11-18] MEDS: INSULIN LISPRO 100 UNITS/ML SUBCUT SCH (22:15)
[2022-11-18] MEDS: METHYLPREDNISOLONE SOD SUCC 40MG VIAL IV SCH (22:24)
[2022-11-18 23:08] VITALS: RESP 26
[2022-11-18] MEDS ORDERED: *PATIENT'S OWN MEDICATION STORAGE XX SCH (23:15)
[2022-11-18 23:34] LABS: CLARITY URINE CLEAR (CLEAR); COLOR URINE YELLOW (YELLOW); GLUCOSE URINE 3+ (NEGATIVE); KETONES URINE NEGATIVE (NEGATIVE); LEUKOCYTE ESTERASE URINE NEGATIVE (NEGATIVE); NITRITE URINE NEGATIVE (NEGATIVE); OCCULT BLOOD URINE NEGATIVE (NEGATIVE); PH URINE 5.5 (4.5-8.0); PROTEIN URINE NEGATIVE (NEGATIVE); UROBILINOGEN URINE 0.2 E.U./dL (0.2-1.0)
[2022-11-19] VITALS (10 sets, daily range): BP systolic 90–136; BP diastolic 56–98; PULSE 56–137; RESP 11–25; TEMP 96.5–97.9
[2022-11-19 00:02] LABS: BACTERIA URINE NONE SEEN; RBC URINE NONE SEEN /hpf (0-2); SQUAMOUS EPITHELIAL CELL URINE NONE SEEN /lpf (RARE/1+); WBC URINE NONE SEEN /hpf (0-2)
[2022-11-19 00:11] LABS: *AMPHETAMINES SCREEN URINE NEGATIVE (NEGATIVE); *BARBITURATES SCREEN URINE NEGATIVE (NEGATIVE); *BENZODIAZEPINES SCREEN URINE NEGATIVE (NEGATIVE); *COCAINE SCREEN URINE NEGATIVE (NEGATIVE); CANNABINOID URINE SCREEN NEGATIVE (NEGATIVE); ECSTASY MDMA SCREEN URINE NEGATIVE (NEGATIVE); METHADONE URINE SCREEN NEGATIVE (NEGATIVE); OPIATES URINE SCREEN NEGATIVE (NEGATIVE); PHENCYCLIDINE URINE SCREEN NEGATIVE (NEGATIVE)
[2022-11-19 00:49] LABS: POTASSIUM 3.8 mEq/L (3.5-5.1)
[2022-11-19 00:51] LABS: CALCIUM 9.5 mg/dL (8.5-10.1)
[2022-11-19 01:06] LABS: CREATINE KINASE MB FRACTION 2.7 ng/mL (0.5-3.6); CREATININE 1.4 mg/dL (0.6-1.3); PHOSPHORUS 3.2 mg/dL (2.5-4.9)
[2022-11-19] MEDS: IPRATROPIUM/ALBUTEROL 0.5-3(2.5)MG/3ML NEB HHN SCH ×4 (01:49→21:00)
[2022-11-19] MEDS: METHYLPREDNISOLONE SOD SUCC 40MG VIAL IV SCH ×2 (06:07→15:00)
[2022-11-19] MEDS: INSULIN LISPRO 100 UNITS/ML SUBCUT SCH ×4 (06:08→21:00)
[2022-11-19] MEDS: BLOOD SUGAR DIAGNOSTIC STRIP TEST SCH ×4 (06:08→21:00)
[2022-11-19 06:36] LABS: BASOPHILS % 0.1 % (0.0-2.0); HEMATOCRIT. 47.4 % (36.0-48.0); HEMOGLOBIN. 15.1 g/dL (12.0-16.0); LYMPHOCYTES % 13.5 % (20.0-50.0); MEAN PLATELET VOLUME 10.6 fl (7.4-10.4); MONOCYTES % 1.9 % (2.0-8.0); NEUTROPHILS % 84.5 % (40.0-76.0); PLATELET 178 x1000/uL (130-400); RED BLOOD CELL COUNT 4.88 mill/uL (4.2-5.4); RED CELL DISTRIBUTION WIDTH 15.6 % (11.6-14.6); WHITE BLOOD COUNT 3.7 x1000/uL (4.5-11.0)
[2022-11-19 07:53] LABS: CHLORIDE 109 mEq/L (98-107); INDEX HEMOLYSI 1 (1-3); INDEX ICTERIC 1 (1-4); INDEX LIPEMIC 1 (1-3); POTASSIUM 3.9 mEq/L (3.5-5.1); SODIUM 143 mEq/L (136-145)
[2022-11-19 08:11] LABS: ALANINE AMINOTRANSFERASE 35 IU/L (13-61); ALBUMIN 3.5 g/dL (3.4-5.0); ASPARTATE AMINOTRANSFERASE 25 IU/L (15-37); BILIRUBIN TOTAL 1.4 mg/dL (0.1-1.0); CALCIUM 9.2 mg/dL (8.5-10.1); CARBON DIOXIDE 25 mEq/L (21-32); CHOLESTEROL 190 mg/dL (<200); CREATININE 1.2 mg/dL (0.6-1.3); GLUCOSE 161 mg/dL (70-105); HDL CHOLESTEROL 65 mg/dL (40-59); LDL CHOLESTEROL 118 mg/dL (5-100); PHOSPHORUS 2.5 mg/dL (2.5-4.9); PROTEIN TOTAL 6.5 g/dL (6.0-8.3); T4 FREE 1.05 ng/dL (0.76-1.46); THYROID STIMULATING HORMONE 0.29 uIU/mL (0.36-3.74); TRIGLYCERIDE 75 mg/dL (0-150); UREA NITROGEN BLOOD 20 mg/dL (7-21)
[2022-11-19] MEDS: ENOXAPARIN 40MG/0.4ML SYR SUBCUT SCH (08:16)
[2022-11-19 09:03] LABS: TROPONIN I HIGH SENSITIVITY 91 ng/L (<54)
[2022-11-19 09:58] LABS: BG BASE EXCESS 0.2 mmol/L (-2.0-2.0); BG CARBOXYHEMOGLOBIN 1.1 % (0.5-1.5); BG DEOXYHEMOGLOBIN 9.4 % (0.0-5.0); BG FRACTION INSPIRED OXYGEN 21; BG HCO3 ACT 24.5 mmol/L (22.0-26.0); BG METHEMOGLOBIN 0.3 % (0.0-1.5); BG OXYGEN SATURATION 90.5 % (92.0-98.5); BG OXYHEMOGLOBIN 89.2 % (94.0-97.0); BG PCO2 38.5 mmHg (35.0-45.0); BG PH 7.421 (7.350-7.450); BG PO2 58.5 mmHg (75.0-100.0); BG SAMPLE SITE RIGHT RADIAL; BG TOTAL HEMOGLOBIN 16.1 g/dL (12.0-18.0); BG VENT MODE ROOM AIR
[2022-11-19 13:20] LABS: TROPONIN I HIGH SENSITIVITY 89 ng/L (<54)
[2022-11-19] MEDS: FUROSEMIDE 40MG/4ML VIAL IVP SCH (18:16)
[2022-11-19] MEDS: BUDESONIDE 0.5MG/2ML NEB HHN SCH (21:01)
[2022-11-19] MEDS: FAMOTIDINE 20MG TABLET PO SCH (21:18)
[2022-11-20] VITALS (11 sets, daily range): BP systolic 86–112; BP diastolic 57–84; PULSE 49–100; RESP 15–24; TEMP 96.9–98; O2SAT 94–97
[2022-11-20] MEDS: IPRATROPIUM/ALBUTEROL 0.5-3(2.5)MG/3ML NEB HHN SCH ×5 (00:29→23:58)
[2022-11-20] MEDS: METHYLPREDNISOLONE SOD SUCC 40MG VIAL IV SCH ×4 (02:48→22:59)
[2022-11-20] MEDS: BLOOD SUGAR DIAGNOSTIC STRIP TEST SCH ×4 (07:10→21:22)
[2022-11-20] MEDS: INSULIN LISPRO 100 UNITS/ML SUBCUT SCH ×4 (07:10→21:00)
[2022-11-20 07:25] LABS: HEMATOCRIT. 46.7 % (36.0-48.0); HEMOGLOBIN. 15.2 g/dL (12.0-16.0); MEAN CORPUSCULAR HEMOGLOBIN 31.5 pg (28.0-32.0); MEAN CORPUSCULAR HGB CONC 32.5 g/dL (31.0-37.0); MEAN CORPUSCULAR VOLUME 96.8 fL (81.0-99.0); MEAN PLATELET VOLUME 10.4 fl (7.4-10.4); PLATELET 181 x1000/uL (130-400); RED BLOOD CELL COUNT 4.82 mill/uL (4.2-5.4); RED CELL DISTRIBUTION WIDTH 15.6 % (11.6-14.6); WHITE BLOOD COUNT 12.1 x1000/uL (4.5-11.0)
[2022-11-20 07:29] LABS: DIFFERENTIAL COMMENT 1
[2022-11-20 07:50] LABS: POTASSIUM 4.1 mEq/L (3.5-5.1)
[2022-11-20 07:55] LABS: CALCIUM 8.9 mg/dL (8.5-10.1); CREATININE 1.3 mg/dL (0.6-1.3); URIC ACID 6.4 mg/dL (2.6-7.2)
[2022-11-20] MEDS: BUDESONIDE 0.5MG/2ML NEB HHN SCH ×2 (08:33→20:45)
[2022-11-20] MEDS ORDERED: FUROSEMIDE 40MG/4ML VIAL IVP SCH (09:00)
[2022-11-20] MEDS: ENOXAPARIN 40MG/0.4ML SYR SUBCUT SCH (09:00)
[2022-11-20] MEDS: FUROSEMIDE 40MG/4ML VIAL IVP SCH (09:00)
[2022-11-20] MEDS ORDERED: NON FORMULARY PATIENT HOME MED XX SCH (10:45)
[2022-11-20 10:52] LABS: BG BASE EXCESS -5.3 mmol/L (-2.0-2.0); BG CARBOXYHEMOGLOBIN 0.3 % (0.5-1.5); BG DEOXYHEMOGLOBIN 5.4 % (0.0-5.0); BG FRACTION INSPIRED OXYGEN 21; BG HCO3 ACT 18.9 mmol/L (22.0-26.0); BG METHEMOGLOBIN 0.5 % (0.0-1.5); BG OXYGEN SATURATION 94.6 % (92.0-98.5); BG OXYHEMOGLOBIN 93.8 % (94.0-97.0); BG PCO2 32.7 mmHg (35.0-45.0); BG PO2 80.1 mmHg (75.0-100.0); BG SAMPLE SITE RIGHT BRACHIAL; BG TOTAL HEMOGLOBIN 12.6 g/dL (12.0-18.0); BG VENT MODE ROOM AIR
[2022-11-20] MEDS ORDERED: FURO40TA5 PO (10:55)
[2022-11-20] MEDS: BIKTARVY 50-200-25 MG TABLET PO SCH (12:55)
[2022-11-20] MEDS: EMPAGLIFLOZIN 10MG TABLET PO SCH (14:26)
[2022-11-20] MEDS: ACETAMINOPHEN 325MG TABLET PO PRN ×2 (14:30→21:21)
[2022-11-20 17:06] LABS: PLATELET ESTIMATE NORMAL
[2022-11-20] MEDS: FAMOTIDINE 20MG TABLET PO SCH (21:20)
[2022-11-21] VITALS (12 sets, daily range): BP systolic 73–119; BP diastolic 22–96; PULSE 57–128; RESP 19–30; TEMP 96.4–98; O2SAT 95–97
[2022-11-21] MEDS: ACETAMINOPHEN 325MG TABLET PO PRN ×2 (04:29→21:22)
[2022-11-21] MEDS: BLOOD SUGAR DIAGNOSTIC STRIP TEST SCH ×4 (05:56→21:36)
[2022-11-21] MEDS: INSULIN LISPRO 100 UNITS/ML SUBCUT SCH ×2 (05:56→21:00)
[2022-11-21] MEDS: IPRATROPIUM/ALBUTEROL 0.5-3(2.5)MG/3ML NEB HHN SCH ×4 (06:02→20:57)
[2022-11-21] MEDS: BUDESONIDE 0.5MG/2ML NEB HHN SCH ×2 (09:22→20:57)
[2022-11-21] MEDS: BIKTARVY 50-200-25 MG TABLET PO SCH (10:01)
[2022-11-21] MEDS: EMPAGLIFLOZIN 10MG TABLET PO SCH (10:01)
[2022-11-21] MEDS: ENOXAPARIN 40MG/0.4ML SYR SUBCUT SCH (10:02)
[2022-11-21] MEDS: METHYLPREDNISOLONE SOD SUCC 40MG VIAL IV SCH ×2 (10:08→23:00)
[2022-11-21] MEDS: FUROSEMIDE 40MG/4ML VIAL IVP SCH (10:11)
[2022-11-21] MEDS: FAMOTIDINE 20MG TABLET PO SCH (21:22)
[2022-11-22] VITALS (10 sets, daily range): BP systolic 94–132; BP diastolic 61–90; PULSE 59–135; RESP 20–24; TEMP 96.1–98.8; O2SAT 97
[2022-11-22] MEDS: IPRATROPIUM/ALBUTEROL 0.5-3(2.5)MG/3ML NEB HHN SCH ×3 (01:13→15:04)
[2022-11-22] MEDS: GUAIFENESIN 200MG/10ML SUGAR FREE UDC PO PRN ×2 (03:16→12:25)
[2022-11-22] MEDS: ACETAMINOPHEN 325MG TABLET PO PRN ×2 (03:16→12:25)
[2022-11-22] MEDS: BUDESONIDE 0.5MG/2ML NEB HHN SCH (07:46)
[2022-11-22] MEDS: BIKTARVY 50-200-25 MG TABLET PO SCH (09:00)
[2022-11-22] MEDS: FUROSEMIDE 40MG/4ML VIAL IVP SCH (09:00)
[2022-11-22] MEDS: ENOXAPARIN 40MG/0.4ML SYR SUBCUT SCH (09:00)
[2022-11-22] MEDS: EMPAGLIFLOZIN 10MG TABLET PO SCH (09:00)
[2022-11-22] MEDS: PREDNISONE 20MG TABLET PO SCH (14:45)
[2022-11-22 16:21] LABS: HEMATOCRIT 47.7 % (36.0-48.0); HEMOGLOBIN 15.7 g/dL (12.0-16.0); MEAN CORPUSCULAR HEMOGLOBIN 31.5 pg (28.0-32.0); MEAN CORPUSCULAR HGB CONC 32.9 g/dL (31.0-37.0); MEAN CORPUSCULAR VOLUME 95.8 fL (81.0-99.0); PLATELET 190 x1000/uL (130-400); RED BLOOD CELL COUNT 4.97 mill/uL (4.2-5.4); RED CELL DISTRIBUTION WIDTH 15.7 % (11.6-14.6); WHITE BLOOD COUNT 10.3 x1000/uL (4.5-11.0)
[2022-11-22 16:39] LABS: CHLORIDE 104 mEq/L (98-107); INDEX HEMOLYSI 1 (1-3); INDEX ICTERIC 2 (1-4); INDEX LIPEMIC 1 (1-3); POTASSIUM 4.6 mEq/L (3.5-5.1); SODIUM 137 mEq/L (136-145)
[2022-11-22 16:46] LABS: ALANINE AMINOTRANSFERASE 129 IU/L (13-61); ALBUMIN 3.5 g/dL (3.4-5.0); ASPARTATE AMINOTRANSFERASE 70 IU/L (15-37); CARBON DIOXIDE 20 mEq/L (21-32); CREATININE 1.4 mg/dL (0.6-1.3); GLUCOSE 108 mg/dL (70-105); PROTEIN TOTAL 6.3 g/dL (6.0-8.3); UREA NITROGEN BLOOD 41 mg/dL (7-21)
[2022-11-22] MEDS: INSULIN LISPRO 100 UNITS/ML SUBCUT SCH (21:00)
[2022-11-22] MEDS: BLOOD SUGAR DIAGNOSTIC STRIP TEST SCH (21:56)
[2022-11-22] MEDS: FAMOTIDINE 20MG TABLET PO SCH (21:59)
[2022-11-22] MEDS ORDERED: METOPROLOL SUCCINATE 50MG ER TABLET PO SCH (22:45)
[2022-11-22] MEDS ORDERED: LISINOPRIL 2.5MG TABLET PO SCH (22:45)
[2022-11-22] MEDS: BUMETANIDE 1MG/4ML VIAL IV SCH (23:27)
[2022-11-23] VITALS (79 sets, daily range): BP systolic 54–192; BP diastolic 15–131; PULSE 76–113; RESP 8–65; TEMP 96–98.3; O2SAT 95–98
[2022-11-23 00:24] LABS: LACTIC ACID 3.5 mmol/L (0.4-2.0)
[2022-11-23] MEDS: IPRATROPIUM/ALBUTEROL 0.5-3(2.5)MG/3ML NEB HHN SCH ×4 (03:05→21:19)
[2022-11-23] MEDS: DOPAMINE 400MG/250ML PREMIX 250 ML IV PRN ×2 (03:22→23:09)
[2022-11-23] MEDS: BLOOD SUGAR DIAGNOSTIC STRIP TEST SCH ×4 (08:15→21:17)
[2022-11-23] MEDS: INSULIN LISPRO 100 UNITS/ML SUBCUT SCH ×4 (08:20→21:17)
[2022-11-23] MEDS: PREDNISONE 20MG TABLET PO SCH (09:38)
[2022-11-23] MEDS: BUMETANIDE 1MG/4ML VIAL IV SCH ×2 (09:38→17:55)
[2022-11-23] MEDS: ENOXAPARIN 40MG/0.4ML SYR SUBCUT SCH (09:38)
[2022-11-23] MEDS: BIKTARVY 50-200-25 MG TABLET PO SCH (09:42)
[2022-11-23] MEDS: EMPAGLIFLOZIN 10MG TABLET PO SCH (09:42)
[2022-11-23 09:59] LABS: BG BASE EXCESS 3.5 mmol/L (-2.0-2.0); BG CARBOXYHEMOGLOBIN 0.6 % (0.5-1.5); BG DEOXYHEMOGLOBIN 1.7 % (0.0-5.0); BG FRACTION INSPIRED OXYGEN 32; BG HCO3 ACT 28.1 mmol/L (22.0-26.0); BG METHEMOGLOBIN 0.4 % (0.0-1.5); BG OXYGEN SATURATION 98.3 % (92.0-98.5); BG OXYHEMOGLOBIN 97.3 % (94.0-97.0); BG PCO2 42.1 mmHg (35.0-45.0); BG PH 7.442 (7.350-7.450); BG PO2 127.7 mmHg (75.0-100.0); BG SAMPLE SITE RIGHT BRACHIAL; BG TOTAL HEMOGLOBIN 15.6 g/dL (12.0-18.0); BG VENT MODE NASAL CANNULA
[2022-11-23 10:00] LABS: HEMATOCRIT 47.9 % (36.0-48.0); HEMOGLOBIN 15.4 g/dL (12.0-16.0); MEAN CORPUSCULAR HEMOGLOBIN 30.8 pg (28.0-32.0); MEAN CORPUSCULAR HGB CONC 32.1 g/dL (31.0-37.0); PLATELET 181 x1000/uL (130-400); RED BLOOD CELL COUNT 4.99 mill/uL (4.2-5.4); RED CELL DISTRIBUTION WIDTH 15.2 % (11.6-14.6); WHITE BLOOD COUNT 8.1 x1000/uL (4.5-11.0)
[2022-11-23 10:15] LABS: CHLORIDE 102 mEq/L (98-107); INDEX HEMOLYSI 1 (1-3); INDEX ICTERIC 2 (1-4); INDEX LIPEMIC 1 (1-3); SODIUM 137 mEq/L (136-145)
[2022-11-23 10:25] LABS: CARBON DIOXIDE 27 mEq/L (21-32); CREATINE KINASE 71 IU/L (26-192); CREATINE KINASE MB FRACTION 4.7 ng/mL (0.5-3.6); CREATININE 1.3 mg/dL (0.6-1.3); GLUCOSE 117 mg/dL (70-105); UREA NITROGEN BLOOD 43 mg/dL (7-21)
[2022-11-23 10:27] LABS: TROPONIN I HIGH SENSITIVITY 695 ng/L (<54)
[2022-11-23 18:49] LABS: TROPONIN I HIGH SENSITIVITY 652 ng/L (<54)
[2022-11-23] MEDS: FAMOTIDINE 20MG TABLET PO SCH (21:13)
[2022-11-24] VITALS (84 sets, daily range): BP systolic 72–166; BP diastolic 31–91; PULSE 81–163; RESP 9–100; TEMP 97.6–98.3; O2SAT 94–100
[2022-11-24] MEDS: IPRATROPIUM/ALBUTEROL 0.5-3(2.5)MG/3ML NEB HHN SCH ×3 (01:09→20:38)
[2022-11-24 06:35] LABS: HEMATOCRIT 46.1 % (36.0-48.0); MEAN CORPUSCULAR HEMOGLOBIN 30.8 pg (28.0-32.0); MEAN CORPUSCULAR HGB CONC 32.7 g/dL (31.0-37.0); MEAN CORPUSCULAR VOLUME 94.4 fL (81.0-99.0); PLATELET 194 x1000/uL (130-400); RED BLOOD CELL COUNT 4.88 mill/uL (4.2-5.4); RED CELL DISTRIBUTION WIDTH 15.3 % (11.6-14.6); WHITE BLOOD COUNT 8.6 x1000/uL (4.5-11.0)
[2022-11-24 07:37] LABS: POTASSIUM 3.5 mEq/L (3.5-5.1)
[2022-11-24 07:38] LABS: CALCIUM 9.1 mg/dL (8.5-10.1)
[2022-11-24 07:43] LABS: CREATININE 1.2 mg/dL (0.6-1.3)
[2022-11-24] MEDS: PREDNISONE 20MG TABLET PO SCH (08:45)
[2022-11-24] MEDS: ENOXAPARIN 40MG/0.4ML SYR SUBCUT SCH (08:46)
[2022-11-24] MEDS: BUMETANIDE 1MG/4ML VIAL IV SCH ×2 (08:48→17:00)
[2022-11-24] MEDS: BIKTARVY 50-200-25 MG TABLET PO SCH (08:48)
[2022-11-24] MEDS: EMPAGLIFLOZIN 10MG TABLET PO SCH (08:48)
[2022-11-24 09:22] LABS: TROPONIN I HIGH SENSITIVITY 519 ng/L (<54)
[2022-11-24] MEDS ORDERED: IPRATROPIUM/ALBUTEROL 0.5-3(2.5)MG/3ML NEB HHN PRN (12:30)
[2022-11-24] MEDS: BUDESONIDE 0.5MG/2ML NEB HHN SCH ×2 (12:31→20:37)
[2022-11-24 16:03] LABS: TROPONIN I HIGH SENSITIVITY 451 ng/L (<54)
[2022-11-24] MEDS: FAMOTIDINE 20MG TABLET PO SCH (20:58)
[2022-11-24 22:02] LABS: TROPONIN I HIGH SENSITIVITY 384 ng/L (<54)
[2022-11-25] VITALS (77 sets, daily range): BP systolic 68–150; BP diastolic 29–108; PULSE 54–125; RESP 12–114; TEMP 97.4–98.3; O2SAT 97–100
[2022-11-25] MEDS: IPRATROPIUM/ALBUTEROL 0.5-3(2.5)MG/3ML NEB HHN SCH ×4 (01:19→20:23)
[2022-11-25 06:08] LABS: HEMATOCRIT 46.9 % (36.0-48.0); HEMOGLOBIN 15.1 g/dL (12.0-16.0); MEAN CORPUSCULAR HEMOGLOBIN 30.8 pg (28.0-32.0); MEAN CORPUSCULAR HGB CONC 32.1 g/dL (31.0-37.0); PLATELET 206 x1000/uL (130-400); RED BLOOD CELL COUNT 4.89 mill/uL (4.2-5.4); RED CELL DISTRIBUTION WIDTH 15.1 % (11.6-14.6); WHITE BLOOD COUNT 9.1 x1000/uL (4.5-11.0)
[2022-11-25 06:43] LABS: CHLORIDE 97 mEq/L (98-107); INDEX HEMOLYSI 1 (1-3); INDEX ICTERIC 1 (1-4); INDEX LIPEMIC 1 (1-3); POTASSIUM 3.4 mEq/L (3.5-5.1); SODIUM 137 mEq/L (136-145)
[2022-11-25 06:49] LABS: CARBON DIOXIDE 35 mEq/L (21-32); GLUCOSE 101 mg/dL (70-105); UREA NITROGEN BLOOD 29 mg/dL (7-21)
[2022-11-25] MEDS: PREDNISONE 20MG TABLET PO SCH (08:13)
[2022-11-25] MEDS: EMPAGLIFLOZIN 10MG TABLET PO SCH (08:14)
[2022-11-25] MEDS: BIKTARVY 50-200-25 MG TABLET PO SCH (08:15)
[2022-11-25] MEDS: ENOXAPARIN 40MG/0.4ML SYR SUBCUT SCH (08:16)
[2022-11-25] MEDS: BUMETANIDE 1MG/4ML VIAL IV SCH ×2 (08:18→17:00)
[2022-11-25] MEDS: BUDESONIDE 0.5MG/2ML NEB HHN SCH (08:55)
[2022-11-25 09:41] LABS: BG BASE EXCESS 9.6 mmol/L (-2.0-2.0); BG CARBOXYHEMOGLOBIN 0.3 % (0.5-1.5); BG DEOXYHEMOGLOBIN 2.6 % (0.0-5.0); BG FRACTION INSPIRED OXYGEN 28; BG HCO3 ACT 34.4 mmol/L (22.0-26.0); BG METHEMOGLOBIN 0.3 % (0.0-1.5); BG OXYGEN SATURATION 97.4 % (92.0-98.5); BG OXYHEMOGLOBIN 96.8 % (94.0-97.0); BG PCO2 45.7 mmHg (35.0-45.0); BG PH 7.494 (7.350-7.450); BG PO2 94.7 mmHg (75.0-100.0); BG SAMPLE SITE LEFT RADIAL; BG TOTAL HEMOGLOBIN 17.2 g/dL (12.0-18.0); BG VENT MODE NASAL CANNULA
[2022-11-25] MEDS ORDERED: MIDODRINE HCL 5MG TABLET PO SCH ×2 (10:00→13:00)
[2022-11-25] MEDS ORDERED: POTASSIUM CHLORIDE INJ 40 MEQ in DEXT 5% WATER 500 ML IV SCH (10:00)
[2022-11-25] MEDS ORDERED: LIDOCAINE HCL 1% 10 MG/ML 10ML VIAL ONE (10:45)
[2022-11-25] MEDS: DOPAMINE 400MG/250ML PREMIX 250 ML IV PRN (11:25)
[2022-11-25] MEDS ORDERED: ACETAZOLAMIDE 250MG TABLET PO NR (13:00)
[2022-11-25] MEDS: MIDODRINE HCL 5MG TABLET PO SCH ×2 (14:46→20:41)
[2022-11-25] MEDS: FAMOTIDINE 20MG TABLET PO SCH (20:41)
[2022-11-26] VITALS (106 sets, daily range): BP systolic 64–128; BP diastolic 24–87; PULSE 65–146; RESP 15–94; TEMP 97.4–98.8; O2SAT 95–100
[2022-11-26] MEDS: IPRATROPIUM/ALBUTEROL 0.5-3(2.5)MG/3ML NEB HHN SCH ×4 (02:20→20:51)
[2022-11-26] MEDS: BUDESONIDE 0.5MG/2ML NEB HHN SCH ×3 (02:20→20:53)
[2022-11-26] MEDS ORDERED: AMIODARONE HCL 150 MG in DEXT 5% WATER 100 ML IV NR (04:45)
[2022-11-26] MEDS ORDERED: MAGNESIUM 2 G PREMIX 50 ML IV NR (05:00)
[2022-11-26] MEDS: PHENYLEPHRINE 100 MG in DEXT 5% WATER 240 ML IV PRN (05:46)
[2022-11-26 05:55] LABS: HEMATOCRIT 48.7 % (36.0-48.0); HEMOGLOBIN 15.6 g/dL (12.0-16.0); MEAN CORPUSCULAR HEMOGLOBIN 30.8 pg (28.0-32.0); MEAN CORPUSCULAR HGB CONC 32.1 g/dL (31.0-37.0); PLATELET 211 x1000/uL (130-400); RED BLOOD CELL COUNT 5.07 mill/uL (4.2-5.4); RED CELL DISTRIBUTION WIDTH 15.1 % (11.6-14.6); WHITE BLOOD COUNT 10.2 x1000/uL (4.5-11.0)
[2022-11-26 06:25] LABS: POTASSIUM 3.4 mEq/L (3.5-5.1)
[2022-11-26 06:28] LABS: CALCIUM 8.8 mg/dL (8.5-10.1); CREATININE 1.2 mg/dL (0.6-1.3)
[2022-11-26] MEDS: KCL 20MEQ/100ML PREMIX 100 ML IV NR ×2 (07:10→09:29)
[2022-11-26] MEDS ORDERED: BUMETANIDE 1MG/4ML VIAL IV SCH (09:00)
[2022-11-26] MEDS: IPRATROPIUM BROMIDE (0.02%) 0.5MG/2.5ML NEB HHN PRN (09:25)
[2022-11-26] MEDS ORDERED: LORAZEPAM 0.5MG TABLET PO NR (09:30)
[2022-11-26 09:53] LABS: CREATINE KINASE MB FRACTION 2.3 ng/mL (0.5-3.6)
[2022-11-26] MEDS: PREDNISONE 20MG TABLET PO SCH (10:09)
[2022-11-26] MEDS: ENOXAPARIN 40MG/0.4ML SYR SUBCUT SCH (10:09)
[2022-11-26] MEDS: POTASSIUM CHLORIDE 20MEQ TABLET SR PO SCH (10:10)
[2022-11-26] MEDS: MIDODRINE HCL 5MG TABLET PO SCH ×4 (10:10→23:53)
[2022-11-26] MEDS: SPIRONOLACTONE 25MG TABLET PO SCH (10:11)
[2022-11-26] MEDS: SERTRALINE HCL 25MG TABLET PO SCH (10:13)
[2022-11-26] MEDS: EMPAGLIFLOZIN 10MG TABLET PO SCH (10:15)
[2022-11-26] MEDS: BIKTARVY 50-200-25 MG TABLET PO SCH (10:15)
[2022-11-26] MEDS ORDERED: ACETAZOLAMIDE 250MG TABLET PO NR (13:00)
[2022-11-26 14:31] LABS: TROPONIN I HIGH SENSITIVITY 412 ng/L (<54)
[2022-11-26] MEDS: BUMETANIDE 1MG/4ML VIAL IV SCH (18:09)
[2022-11-26 18:30] LABS: TROPONIN I HIGH SENSITIVITY 392 ng/L (<54)
[2022-11-26 18:33] LABS: BG BASE EXCESS 3.2 mmol/L (-2.0-2.0); BG CARBOXYHEMOGLOBIN 0.4 % (0.5-1.5); BG DEOXYHEMOGLOBIN 2.9 % (0.0-5.0); BG FRACTION INSPIRED OXYGEN 28; BG HCO3 ACT 29.7 mmol/L (22.0-26.0); BG METHEMOGLOBIN 0.2 % (0.0-1.5); BG OXYGEN SATURATION 97.1 % (92.0-98.5); BG OXYHEMOGLOBIN 96.5 % (94.0-97.0); BG PCO2 51.6 mmHg (35.0-45.0); BG PH 7.378 (7.350-7.450); BG PO2 95.3 mmHg (75.0-100.0); BG SAMPLE SITE RIGHT RADIAL; BG TOTAL HEMOGLOBIN 16.9 g/dL (12.0-18.0); BG VENT MODE NASAL CANNULA
[2022-11-26] MEDS: FAMOTIDINE 20MG TABLET PO SCH (20:43)
[2022-11-27] VITALS (108 sets, daily range): BP systolic 44–136; BP diastolic 16–93; PULSE 65–158; RESP 13–78; TEMP 97.7–98.7; O2SAT 97–99
[2022-11-27] MEDS: IPRATROPIUM/ALBUTEROL 0.5-3(2.5)MG/3ML NEB HHN SCH ×4 (02:18→21:35)
[2022-11-27 06:26] LABS: HEMOGLOBIN 15.3 g/dL (12.0-16.0); MEAN CORPUSCULAR HEMOGLOBIN 30.7 pg (28.0-32.0); MEAN CORPUSCULAR HGB CONC 31.8 g/dL (31.0-37.0); MEAN CORPUSCULAR VOLUME 96.4 fL (81.0-99.0); PLATELET 214 x1000/uL (130-400); POTASSIUM 4.3 mEq/L (3.5-5.1); RED BLOOD CELL COUNT 4.98 mill/uL (4.2-5.4); RED CELL DISTRIBUTION WIDTH 15.3 % (11.6-14.6); WHITE BLOOD COUNT 10.5 x1000/uL (4.5-11.0)
[2022-11-27 06:36] LABS: CALCIUM 8.4 mg/dL (8.5-10.1); CREATININE 1.5 mg/dL (0.6-1.3)
[2022-11-27] MEDS: POTASSIUM CHLORIDE 20MEQ TABLET SR PO SCH (08:49)
[2022-11-27] MEDS: ENOXAPARIN 40MG/0.4ML SYR SUBCUT SCH (08:49)
[2022-11-27] MEDS: MIDODRINE HCL 5MG TABLET PO SCH ×2 (08:49→16:46)
[2022-11-27] MEDS: SERTRALINE HCL 25MG TABLET PO SCH (08:50)
[2022-11-27] MEDS: BUMETANIDE 1MG/4ML VIAL IV SCH (08:50)
[2022-11-27] MEDS: SPIRONOLACTONE 25MG TABLET PO SCH (08:50)
[2022-11-27] MEDS: PREDNISONE 20MG TABLET PO SCH (08:50)
[2022-11-27] MEDS: EMPAGLIFLOZIN 10MG TABLET PO SCH (08:51)
[2022-11-27] MEDS: BIKTARVY 50-200-25 MG TABLET PO SCH (08:51)
[2022-11-27 08:59] LABS: BG BASE EXCESS 4.7 mmol/L (-2.0-2.0); BG CARBOXYHEMOGLOBIN 0.6 % (0.5-1.5); BG DEOXYHEMOGLOBIN 1.3 % (0.0-5.0); BG FRACTION INSPIRED OXYGEN 28; BG HCO3 ACT 30.1 mmol/L (22.0-26.0); BG OXYGEN SATURATION 98.7 % (92.0-98.5); BG OXYHEMOGLOBIN 98.1 % (94.0-97.0); BG PCO2 46.9 mmHg (35.0-45.0); BG PH 7.425 (7.350-7.450); BG PO2 130.6 mmHg (75.0-100.0); BG SAMPLE SITE RIGHT RADIAL; BG TOTAL HEMOGLOBIN 16.4 g/dL (12.0-18.0); BG VENT MODE NASAL CANNULA
[2022-11-27] MEDS: BUDESONIDE 0.5MG/2ML NEB HHN SCH (12:24)
[2022-11-27] MEDS: HYDROXYZINE 10 MG TABLET PO PRN (19:27)
[2022-11-27] MEDS ORDERED: ADENOSINE 3 MG/ML 2ML VIAL IV NR (19:30)
[2022-11-27] MEDS ORDERED: SODIUM CHLORIDE 0.9% 1000ML BAG (SEPSIS BOLUS) IV NR (19:45)
[2022-11-27] MEDS ORDERED: SODIUM CHLORIDE 0.9% 250 ML IV NR (20:18)
[2022-11-27] MEDS ORDERED: DIGOXIN 500MCG/2ML AMP IV NR (20:18)
[2022-11-27] MEDS ORDERED: AMIODARONE HCL 150 MG in DEXT 5% WATER 97 ML IV NR (20:30)
[2022-11-27] MEDS ORDERED: AMIODARONE HCL 900 MG in DEXT 5% WATER 482 ML IV PRN (20:30)
[2022-11-27] MEDS: FAMOTIDINE 20MG TABLET PO SCH (21:53)
[2022-11-28] VITALS (111 sets, daily range): BP systolic 80–147; BP diastolic 17–104; PULSE 67–101; RESP 15–75; TEMP 97.8–98.2; O2SAT 97–100
[2022-11-28] MEDS: IPRATROPIUM/ALBUTEROL 0.5-3(2.5)MG/3ML NEB HHN SCH ×4 (01:33→21:32)
[2022-11-28] MEDS: PHENYLEPHRINE 100 MG in DEXT 5% WATER 240 ML IV PRN (05:08)
[2022-11-28] MEDS: MIDODRINE HCL 5MG TABLET PO SCH ×3 (08:00→16:00)
[2022-11-28 08:10] LABS: HEMATOCRIT 49.4 % (36.0-48.0); HEMOGLOBIN 16.5 g/dL (12.0-16.0); MEAN CORPUSCULAR HEMOGLOBIN 31.8 pg (28.0-32.0); MEAN CORPUSCULAR HGB CONC 33.3 g/dL (31.0-37.0); MEAN CORPUSCULAR VOLUME 95.3 fL (81.0-99.0); PLATELET 218 x1000/uL (130-400); RED BLOOD CELL COUNT 5.19 mill/uL (4.2-5.4); RED CELL DISTRIBUTION WIDTH 15.4 % (11.6-14.6); WHITE BLOOD COUNT 14.7 x1000/uL (4.5-11.0)
[2022-11-28 08:44] LABS: CALCIUM 8.5 mg/dL (8.5-10.1); CREATININE 2.2 mg/dL (0.6-1.3)
[2022-11-28] MEDS: POTASSIUM CHLORIDE 20MEQ TABLET SR PO SCH ×2 (09:00→09:13)
[2022-11-28] MEDS: SERTRALINE HCL 25MG TABLET PO SCH (09:13)
[2022-11-28] MEDS: PREDNISONE 20MG TABLET PO SCH (09:13)
[2022-11-28] MEDS: ENOXAPARIN 40MG/0.4ML SYR SUBCUT SCH (09:16)
[2022-11-28] MEDS: EMPAGLIFLOZIN 10MG TABLET PO SCH (09:16)
[2022-11-28] MEDS: BIKTARVY 50-200-25 MG TABLET PO SCH (09:16)
[2022-11-28] MEDS: AMIODARONE HCL 200 MG TABLET PO SCH (20:55)
[2022-11-28] MEDS: FAMOTIDINE 20MG TABLET PO SCH (20:55)
[2022-11-29] VITALS (48 sets, daily range): BP systolic 71–124; BP diastolic 33–94; PULSE 74–124; RESP 16–49; TEMP 97.6–98.3; O2SAT 96–100
[2022-11-29] MEDS: MIDODRINE HCL 5MG TABLET PO SCH ×4 (00:20→17:06)
[2022-11-29] MEDS: IPRATROPIUM/ALBUTEROL 0.5-3(2.5)MG/3ML NEB HHN SCH ×4 (02:12→21:06)
[2022-11-29 06:48] LABS: POTASSIUM 4.8 mEq/L (3.5-5.1)
[2022-11-29 06:54] LABS: CALCIUM 9.1 mg/dL (8.5-10.1); CREATININE 1.4 mg/dL (0.6-1.3)
[2022-11-29 06:57] LABS: HEMATOCRIT 46.2 % (36.0-48.0); HEMOGLOBIN 14.8 g/dL (12.0-16.0); MEAN CORPUSCULAR HEMOGLOBIN 30.6 pg (28.0-32.0); MEAN CORPUSCULAR HGB CONC 32.1 g/dL (31.0-37.0); MEAN CORPUSCULAR VOLUME 95.4 fL (81.0-99.0); PLATELET 198 x1000/uL (130-400); RED BLOOD CELL COUNT 4.85 mill/uL (4.2-5.4); WHITE BLOOD COUNT 15.7 x1000/uL (4.5-11.0)
[2022-11-29] MEDS: ENOXAPARIN 40MG/0.4ML SYR SUBCUT SCH (08:26)
[2022-11-29] MEDS: POTASSIUM CHLORIDE 20MEQ TABLET SR PO SCH (08:26)
[2022-11-29] MEDS: AMIODARONE HCL 200 MG TABLET PO SCH (08:26)
[2022-11-29] MEDS: BIKTARVY 50-200-25 MG TABLET PO SCH (08:27)
[2022-11-29] MEDS: PREDNISONE 20MG TABLET PO SCH (08:27)
[2022-11-29] MEDS: EMPAGLIFLOZIN 10MG TABLET PO SCH (08:27)
[2022-11-29] MEDS: SERTRALINE HCL 25MG TABLET PO SCH (08:29)
[2022-11-29] MEDS: IPRATROPIUM BROMIDE (0.02%) 0.5MG/2.5ML NEB HHN PRN (14:37)
[2022-11-29] MEDS: HYDROXYZINE 10 MG TABLET PO PRN (18:31)
[2022-11-29] MEDS ORDERED: ONDANSETRON HCL 4MG/2ML INJ IV PRN (22:30)
[2022-11-30] VITALS (9 sets, daily range): BP systolic 97–116; BP diastolic 53–73; PULSE 70–108; RESP 18–23; TEMP 97.3–98.6; O2SAT 94–100
[2022-11-30] MEDS: MIDODRINE HCL 5MG TABLET PO SCH ×3 (00:10→15:46)
[2022-11-30] MEDS: FAMOTIDINE 20MG TABLET PO SCH (00:11)
[2022-11-30] MEDS: AMIODARONE HCL 200 MG TABLET PO SCH ×2 (00:11→09:08)
[2022-11-30] MEDS: IPRATROPIUM/ALBUTEROL 0.5-3(2.5)MG/3ML NEB HHN SCH ×3 (01:12→13:10)
[2022-11-30] MEDS ORDERED: HYDROXYZINE 10 MG TABLET PO PRN (01:15)
[2022-11-30] MEDS ORDERED: PREDNISONE 20MG TABLET PO SCH (09:00)
[2022-11-30] MEDS: ENOXAPARIN 40MG/0.4ML SYR SUBCUT SCH (09:04)
[2022-11-30] MEDS: SERTRALINE HCL 25MG TABLET PO SCH (09:05)
[2022-11-30] MEDS: POTASSIUM CHLORIDE 20MEQ TABLET SR PO SCH (09:05)
[2022-11-30] MEDS: BIKTARVY 50-200-25 MG TABLET PO SCH (09:06)
[2022-11-30] MEDS: EMPAGLIFLOZIN 10MG TABLET PO SCH (09:07)
[2022-11-30] MEDS ORDERED: SERT25TA74 PO ×3 (10:26→10:54)
[2022-11-30] MEDS ORDERED: MIDO10TA PO ×3 (10:26→10:54)
[2022-11-30] MEDS ORDERED: HYDR-3782 PO (10:26)
[2022-11-30] MEDS ORDERED: AMI2 PO ×4 (10:54)
[2022-11-30] MEDS ORDERED: FURO20TA4 PO ×2 (10:54)
[2022-11-30] MEDS ORDERED: HYDR-459 MT (10:54)
[2022-11-30] MEDS ORDERED: ATOR40TA70 MT ×2 (10:54)
[2022-12-01] MEDS ORDERED: FURO20TA4 PO (13:52)
[2022-12-01] MEDS ORDERED: AMI2 PO ×2 (13:52)
[2022-12-01] MEDS ORDERED: ATOR40TA70 MT (13:52)
[2022-12-01] MEDS ORDERED: SERT25TA74 PO (13:52)
[2022-12-01] MEDS ORDERED: MIDO10TA PO (13:52)
[2022-12-01] MEDS ORDERED: FURO-151 MT (14:06)
== END 2022-11-30 16:45 | disposition home health service (06) | DRG 133 ==
LOC: ER 13:12 → 7EST 16:30 → EDBEDREQ 17:17 → EDBEDREQTM 17:17 → CVICU 11-23 02:50 → 3WST 11-29 10:47
PROVIDERS: ADMIT Internal Medicine; ATTEND Internal Medicine
PROC: 5A09357 Assistance with Respiratory Ventilation, Less than 24 Consecutive Hours, Continuous Positive Airway Pressure (ICD-10-PCS; 2022-11-18)
PROC: 5A09357 Assistance with Respiratory Ventilation, Less than 24 Consecutive Hours, Continuous Positive Airway Pressure (ICD-10-PCS; 2022-11-20)
PROC: 5A09357 Assistance with Respiratory Ventilation, Less than 24 Consecutive Hours, Continuous Positive Airway Pressure (ICD-10-PCS; 2022-11-21)
PROC: 05HY33Z Insertion of Infusion Device into Upper Vein, Percutaneous Approach (ICD-10-PCS; principal; 2022-11-25)
PROC: B54MZZA Ultrasonography of Right Upper Extremity Veins, Guidance (ICD-10-PCS; 2022-11-25)
DX: J96.21 Acute and chronic respiratory failure with hypoxia (principal); N17.0 Acute kidney failure with tubular necrosis; R57.0 Cardiogenic shock; I21.A1 Myocardial infarction type 2; I95.9 Hypotension, unspecified; I50.23 Acute on chronic systolic (congestive) heart failure; I27.20 Pulmonary hypertension, unspecified; E87.3 Alkalosis; I11.0 Hypertensive heart disease with heart failure; E44.1 Mild protein-calorie malnutrition; I08.3 Combined rheumatic disorders of mitral, aortic and tricuspid valves; J44.1 Chronic obstructive pulmonary disease with (acute) exacerbation; M19.90 Unspecified osteoarthritis, unspecified site; E87.6 Hypokalemia; I48.91 Unspecified atrial fibrillation; I47.20 Ventricular tachycardia, unspecified; I44.4 Left anterior fascicular block; F17.210 Nicotine dependence, cigarettes, uncomplicated; D72.819 Decreased white blood cell count, unspecified; F43.23 Adjustment disorder with mixed anxiety and depressed mood; Z81.8 Family history of other mental and behavioral disorders; Z79.899 Other long term (current) drug therapy; Z79.82 Long term (current) use of aspirin; Z68.21 Body mass index [BMI] 21.0-21.9, adult
CPT/HCPCS: 36415; 36573; 36600; 71045; 80048; 80053; 80061; 80305; 81003; 82375; 82550; 82553; 82805; 82962; 83036; 83605; 83735; 83880; 83930; 84100; 84145; 84439; 84443; 84481; 84484; 84550; 85025; 85027; 85379; 93005; 93306; 93970; 94618; 94640; 94660; 94664; 97162; 97164; 97166; 97168; 97535; 99285; C1725; J0153; J0282; J1160; J1265; J1650; J1815; J1940; J2370; J2920; J2930; J3480; J3490; J7060; J7512; J7626

== ENCOUNTER 2022-11-30 19:12 | Inpatient (IN) | payer MEDICAID ==
[~2022-11-30] VITALS: Ht 170.2 cm; Wt 64.0 kg
[~2022-11-30 19:12] MED LIST changes: +AMI2 PO; +ATOR40TA70 MT; +FURO40TA5 PO; +HYDR-3782 PO; +HYDR-459 MT; +MIDO10TA PO; +SERT25TA74 PO
[2022-11-30] MEDS ORDERED: ALBUTEROL (0.083%) 2.5MG/3ML NEB HHN STA (19:58)
[2022-11-30] MEDS ORDERED: IPRATROPIUM BROMIDE (0.02%) 0.5MG/2.5ML NEB HHN STA (19:58)
[2022-11-30] MEDS ORDERED: METHYLPREDNISOLONE SOD SUCC 125MG/2ML (ACT-O-VIAL) IV STA (19:58)
[2022-11-30] MEDS ORDERED: MAGNESIUM 2 G PREMIX 50 ML IV ONE (20:00)
[2022-11-30] MEDS ORDERED: FUROSEMIDE 40MG/4ML VIAL IVP ONE (20:00)
[2022-11-30 20:55] VITALS: PULSE 101; RESP 20; O2SAT 100
[2022-11-30] MEDS ORDERED: METHYLPREDNISOLONE SOD SUCC 125MG VIAL IV NR (21:00)
[2022-11-30] MEDS ORDERED: FUROSEMIDE 40MG/4ML VIAL IVP NR (21:15)
[2022-11-30 22:34] LABS: HEMATOCRIT. 47.7 % (36.0-48.0); HEMOGLOBIN. 15.1 g/dL (12.0-16.0); MEAN CORPUSCULAR HEMOGLOBIN 30.8 pg (28.0-32.0); MEAN CORPUSCULAR HGB CONC 31.7 g/dL (31.0-37.0); MEAN CORPUSCULAR VOLUME 97.2 fL (81.0-99.0); MEAN PLATELET VOLUME 9.4 fl (7.4-10.4); PLATELET 234 x1000/uL (130-400); RED BLOOD CELL COUNT 4.91 mill/uL (4.2-5.4); RED CELL DISTRIBUTION WIDTH 15.7 % (11.6-14.6); WHITE BLOOD COUNT 14.2 x1000/uL (4.5-11.0)
[2022-11-30 22:37] LABS: DIFFERENTIAL COMMENT 1
[2022-11-30 22:42] LABS: CHLORIDE 106 mEq/L (98-107); INDEX HEMOLYSI 1 (1-3); INDEX ICTERIC 1 (1-4); INDEX LIPEMIC 1 (1-3); POTASSIUM 5.3 mEq/L (3.5-5.1); SODIUM 135 mEq/L (136-145)
[2022-11-30 22:44] LABS: INR 1.3; PARTIAL THROMBOPLASTIN TIME 25.9 sec (23.4-31.0); PROTHROMBIN TIME 13.5 sec (9.6-11.0)
[2022-11-30 23:03] LABS: ALANINE AMINOTRANSFERASE 114 IU/L (13-61); ALBUMIN 3.3 g/dL (3.4-5.0); ASPARTATE AMINOTRANSFERASE 41 IU/L (15-37); BILIRUBIN TOTAL 1.3 mg/dL (0.1-1.0); CALCIUM 9.4 mg/dL (8.5-10.1); CARBON DIOXIDE 21 mEq/L (21-32); CREATININE 1.5 mg/dL (0.6-1.3); GLUCOSE 107 mg/dL (70-105); NT PRO B-TYPE NATRIURETIC PEP 34259 pg/mL (5-125); PROTEIN TOTAL 6.2 g/dL (6.0-8.3); UREA NITROGEN BLOOD 39 mg/dL (7-21)
[2022-11-30 23:08] LABS: TROPONIN I HIGH SENSITIVITY 208 ng/L (<54)
[2022-11-30] MEDS ORDERED: ASPIRIN 325MG EC TABLET PO NR (23:15)
[2022-11-30 23:36] LABS: ANISOCYTOSIS 1+; PLATELET ESTIMATE NORMAL
[2022-12-01] MEDS ORDERED: MAGNESIUM 2 G PREMIX 50 ML IV NR (00:15)
[2022-12-01] MEDS ORDERED: IPRATROPIUM/ALBUTEROL 0.5-3(2.5)MG/3ML NEB HHN PRN (00:30)
[2022-12-01] MEDS ORDERED: ACETAMINOPHEN 325MG TABLET PO PRN ×2 (00:30)
[2022-12-01] MEDS ORDERED: LORAZEPAM 0.5MG TABLET PO PRN (01:00)
[2022-12-01] MEDS ORDERED: VANCOMYCIN 1G PREMIX 200 ML IV NR (01:15)
[2022-12-01] MEDS ORDERED: PIPERACILLIN/TAZ 3.375G PREMIX 50 ML IV NR (01:15)
[2022-12-01] MEDS: METHYLPREDNISOLONE SOD SUCC 40MG VIAL IV SCH ×3 (07:02→18:30)
[2022-12-01] MEDS: ENOXAPARIN 60MG/0.6ML SYR SUBCUT SCH ×2 (07:02→18:00)
[2022-12-01] MEDS ORDERED: FUROSEMIDE 40MG/4ML VIAL IVP SCH ×2 (09:00→17:00)
[2022-12-01] MEDS ORDERED: ENOXAPARIN 40MG/0.4ML SYR SUBCUT SCH (09:00)
[2022-12-01] MEDS ORDERED: AMI2 PO ×2 (13:52)
[2022-12-01] MEDS ORDERED: ATOR40TA70 MT (13:52)
[2022-12-01] MEDS ORDERED: FURO20TA4 PO (13:52)
[2022-12-01] MEDS ORDERED: SERT25TA74 PO (13:52)
[2022-12-01] MEDS ORDERED: MIDO10TA PO (13:52)
[2022-12-01] MEDS ORDERED: PIPERACILLIN/TAZOBACTAM 3.375 G in DEXTROSE 5% WATER 50 ML IV SCH (14:00)
[2022-12-01] MEDS ORDERED: FURO-151 MT (14:06)
[2022-12-01] MEDS ORDERED: SERTRALINE HCL 25MG TABLET PO SCH (14:15)
[2022-12-01] MEDS ORDERED: HYDROXYZINE 25MG TABLET PO PRN (14:15)
[2022-12-01] MEDS: AMIODARONE HCL 200 MG TABLET PO SCH ×2 (15:14→17:00)
[2022-12-01 16:36] LABS: POTASSIUM 4.7 mEq/L (3.5-5.1)
[2022-12-01 16:37] LABS: CALCIUM 9.6 mg/dL (8.5-10.1)
[2022-12-01 16:45] LABS: CREATININE 1.5 mg/dL (0.6-1.3); PHOSPHORUS 4.1 mg/dL (2.5-4.9)
[2022-12-01 16:51] LABS: LACTIC ACID 4.2 mmol/L (0.4-2.0)
[2022-12-01 17:00] VITALS: PULSE 87; RESP 20; O2SAT 98
[2022-12-01 17:00] LABS: HEMATOCRIT. 47.2 % (36.0-48.0); HEMOGLOBIN. 15.6 g/dL (12.0-16.0); MEAN CORPUSCULAR HEMOGLOBIN 31.4 pg (28.0-32.0); MEAN CORPUSCULAR HGB CONC 33.1 g/dL (31.0-37.0); MEAN PLATELET VOLUME 9.3 fl (7.4-10.4); PLATELET 229 x1000/uL (130-400); RED BLOOD CELL COUNT 4.97 mill/uL (4.2-5.4); RED CELL DISTRIBUTION WIDTH 15.1 % (11.6-14.6); WHITE BLOOD COUNT 12.4 x1000/uL (4.5-11.0)
[2022-12-01 17:01] LABS: DIFFERENTIAL COMMENT 1
[2022-12-01] MEDS: IPRATROPIUM/ALBUTEROL 0.5-3(2.5)MG/3ML NEB HHN SCH ×2 (17:14→19:54)
[2022-12-01 18:36] LABS: PLATELET ESTIMATE NORMAL
[2022-12-01 19:54] VITALS: PULSE 99; RESP 13; O2SAT 98
[2022-12-01 20:21] VITALS: BP 118/90; PULSE 99; RESP 18; TEMP 97.9
[2022-12-01] MEDS ORDERED: ATORVASTATIN CALCIUM 40MG TABLET PO SCH (21:00)
[2022-12-02] MEDS ORDERED: VANCOMYCIN 1G PREMIX 200 ML IV SCH (05:00)
[2022-12-02] MEDS ORDERED: ASPIRIN 81MG EC TABLET PO SCH (09:00)
== END 2022-12-01 20:18 | disposition home or self-care (01) | DRG 194 ==
LOC: ER 19:12 → MICUSO 20:54 → EDBEDREQTM 21:15 → EDBEDREQ 21:15
PROVIDERS: ADMIT Internal Medicine; ATTEND Internal Medicine
DX: I11.0 Hypertensive heart disease with heart failure (principal); J96.21 Acute and chronic respiratory failure with hypoxia; I21.A1 Myocardial infarction type 2; E44.1 Mild protein-calorie malnutrition; I50.23 Acute on chronic systolic (congestive) heart failure; J44.1 Chronic obstructive pulmonary disease with (acute) exacerbation; E87.1 Hypo-osmolality and hyponatremia; E87.5 Hyperkalemia; F41.9 Anxiety disorder, unspecified; D72.829 Elevated white blood cell count, unspecified; R74.01 Elevation of levels of liver transaminase levels; N17.9 Acute kidney failure, unspecified; I45.4 Nonspecific intraventricular block; I48.92 Unspecified atrial flutter; I27.20 Pulmonary hypertension, unspecified; I47.20 Ventricular tachycardia, unspecified; I48.91 Unspecified atrial fibrillation; I34.0 Nonrheumatic mitral (valve) insufficiency; Z21 Asymptomatic human immunodeficiency virus [HIV] infection status; Z99.81 Dependence on supplemental oxygen; Z91.199 Patient's noncompliance with other medical treatment and regimen due to unspecified reason; Z79.899 Other long term (current) drug therapy; Z68.22 Body mass index [BMI] 22.0-22.9, adult
CPT/HCPCS: 36415; 71045; 80048; 80053; 83605; 83735; 83880; 84100; 84484; 85025; 85379; 93005; 94640; 99291; J1650; J1940; J2543; J2930; J3370; J3475

== ENCOUNTER 2023-11-25 11:05 | Inpatient (IN) | payer MEDICAID ==
[~2023-11-25] VITALS: Ht 170.2 cm; Wt 61.2 kg
[~2023-11-25 11:05] MED LIST changes: -ALD50 PO; -ATOR-2 PO; +FURO-151 MT; -FURO20TA4 PO; -FURO40TA5 PO; -HYDR-3782 PO; -HYDR-459 MT; +HYDR-459 PO; +MED4 MT; -SACU1TAB PO
[2023-11-25 12:13] VITALS: PULSE 101; RESP 22; O2SAT 98
[2023-11-25] MEDS: ALBUTEROL (0.083%) 2.5MG/3ML NEB HHN STA (12:13)
[2023-11-25] MEDS: METHYLPREDNISOLONE SOD SUCC 125MG/2ML (ACT-O-VIAL) IV STA (12:13)
[2023-11-25] MEDS: IPRATROPIUM BROMIDE (0.02%) 0.5MG/2.5ML NEB HHN STA (12:13)
[2023-11-25 12:45] LABS: CHLORIDE 109 mEq/L (98-107); POTASSIUM 3.7 mEq/L (3.5-5.1); SODIUM 141 mEq/L (136-145)
[2023-11-25 13:08] LABS: CALCIUM 9.7 mg/dL (8.7-10.4); CARBON DIOXIDE 24 mEq/L (21-32); CREATININE 0.9 mg/dL (0.6-1.0); GLUCOSE 85 mg/dL (70-105); INR 1.3; UREA NITROGEN BLOOD 9 mg/dL (9-23)
[2023-11-25 13:25] LABS: TROPONIN I HIGH SENSITIVITY 49 ng/L (3.0-34)
[2023-11-25] MEDS: FUROSEMIDE 40MG/4ML VIAL IVP ONE (13:49)
[2023-11-25] MEDS ORDERED: DEXTROSE 50% WATER 50ML SYRINGE IV PRN (14:00)
[2023-11-25] MEDS ORDERED: MAGNESIUM/ALUMINUM HYDROXIDE/SIMETHICONE 30ML UDC PO PRN (14:00)
[2023-11-25] MEDS ORDERED: CLONIDINE 0.1MG TABLET PO PRN (14:00)
[2023-11-25] MEDS ORDERED: ONDANSETRON HCL 4MG/2ML INJ IV PRN (14:00)
[2023-11-25] MEDS: METHYLPREDNISOLONE SOD SUCC 125MG/2ML (ACT-O-VIAL) IV SCH (14:00)
[2023-11-25] MEDS ORDERED: ACETAMINOPHEN 325MG TABLET PO PRN (14:00)
[2023-11-25] MEDS ORDERED: MEDICATION NOT ON FORMULARY EA (Bictegrav/Emtricit/Tenofov Ala (Biktarvy 50-200-25 mg Ta PO SCH (14:15)
[2023-11-25] MEDS ORDERED: EMPA10TA PO (14:27)
[2023-11-25] MEDS ORDERED: FLUT1DIS3 IH (14:27)
[2023-11-25] MEDS ORDERED: SPIR50TA5 PO (14:27)
[2023-11-25] MEDS ORDERED: FURO20TA4 PO (14:27)
[2023-11-25] MEDS ORDERED: ALBU2.5V13 NEB (14:27)
[2023-11-25] MEDS ORDERED: ATOR-2 PO (14:27)
[2023-11-25] MEDS ORDERED: METO-396 PO (14:27)
[2023-11-25] MEDS ORDERED: SPIRONOLACTONE 25MG TABLET PO SCH (14:30)
[2023-11-25] MEDS: FUROSEMIDE 40MG/4ML VIAL IV SCH (14:30)
[2023-11-25] MEDS ORDERED: SACU1TAB PO (14:36)
[2023-11-25 14:43] LABS: HEMATOCRIT. 42.8 % (36.0-48.0); HEMOGLOBIN. 13.5 g/dL (12.0-16.0); MEAN CORPUSCULAR HEMOGLOBIN 29.7 pg (28.0-32.0); MEAN CORPUSCULAR HGB CONC 31.5 g/dL (31.0-37.0); MEAN CORPUSCULAR VOLUME 94.4 fL (81.0-99.0); MEAN PLATELET VOLUME 9.4 fl (7.4-10.4); PLATELET 252 x1000/uL (130-400); RED BLOOD CELL COUNT 4.54 mill/uL (4.2-5.4); RED CELL DISTRIBUTION WIDTH 15.8 % (11.6-14.6)
[2023-11-25 14:49] LABS: CLARITY URINE CLEAR (CLEAR); COLOR URINE YELLOW (YELLOW); GLUCOSE URINE 3+ (NEGATIVE); KETONES URINE NEGATIVE (NEGATIVE); LEUKOCYTE ESTERASE URINE TRACE (NEGATIVE); NITRITE URINE NEGATIVE (NEGATIVE); OCCULT BLOOD URINE NEGATIVE (NEGATIVE); PROTEIN URINE 1+ (NEGATIVE)
[2023-11-25 15:03] LABS: DIFFERENTIAL COMMENT 1; WHITE BLOOD COUNT 9.6 x1000/uL (4.5-11.0)
[2023-11-25 15:12] LABS: BACTERIA URINE TRACE; RBC URINE 0-2 /hpf (0-2); SQUAMOUS EPITHELIAL CELL URINE 1+ /lpf (RARE/1+)
[2023-11-25] MEDS: DIGOXIN 500MCG/2ML AMP IV NR (15:15)
[2023-11-25 15:22] LABS: *AMPHETAMINES SCREEN URINE NEGATIVE (NEGATIVE); *BARBITURATES SCREEN URINE NEGATIVE (NEGATIVE); *BENZODIAZEPINES SCREEN URINE NEGATIVE (NEGATIVE); *COCAINE SCREEN URINE NEGATIVE (NEGATIVE); METHADONE URINE SCREEN NEGATIVE (NEGATIVE); OPIATES URINE SCREEN NEGATIVE (NEGATIVE); PHENCYCLIDINE URINE SCREEN NEGATIVE (NEGATIVE)
[2023-11-25 15:23] LABS: CANNABINOID URINE SCREEN NEGATIVE (NEGATIVE)
[2023-11-25 15:43] LABS: ECSTASY MDMA SCREEN URINE NEGATIVE (NEGATIVE)
[2023-11-25 15:44] LABS: PLATELET ESTIMATE NORMAL
[2023-11-25 16:32] LABS: BG BASE EXCESS 1.7 mmol/L (-2.0-2.0); BG CARBOXYHEMOGLOBIN 1.1 % (0.5-1.5); BG DEOXYHEMOGLOBIN 1.3 % (0.0-5.0); BG FRACTION INSPIRED OXYGEN 28; BG METHEMOGLOBIN 0.3 % (0.0-1.5); BG OXYGEN SATURATION 98.7 % (92.0-98.5); BG OXYHEMOGLOBIN 97.3 % (94.0-97.0); BG PCO2 39.6 mmHg (35.0-45.0); BG PH 7.435 (7.350-7.450); BG PO2 114.2 mmHg (75.0-100.0); BG SAMPLE SITE RIGHT RADIAL; BG TOTAL HEMOGLOBIN 13.8 g/dL (12.0-18.0); BG VENT MODE NASAL CANNULA
[2023-11-25 16:37] LABS: T4 FREE 1.24 ng/dL (0.89-1.76); THYROID STIMULATING HORMONE 0.37 uIU/mL (0.55-4.78)
[2023-11-25 16:42] LABS: VITAMIN B12 SERUM 512 pg/mL (211-911)
[2023-11-25] MEDS: ENOXAPARIN 40MG/0.4ML SYR SUBCUT SCH (17:01)
[2023-11-25] MEDS: SERTRALINE HCL 25MG TABLET PO SCH (17:01)
[2023-11-25] MEDS: ASPIRIN 81MG EC TABLET PO SCH (17:02)
[2023-11-25] MEDS: INSULIN LISPRO 100 UNITS/ML SUBCUT SCH (18:20)
[2023-11-25] MEDS: BLOOD SUGAR DIAGNOSTIC STRIP TEST SCH (18:44)
[2023-11-25] MEDS: DIGOXIN 250MCG TABLET PO SCH (18:49)
[2023-11-25 19:13] VITALS: PULSE 105; RESP 22; O2SAT 98
[2023-11-25] MEDS: IPRATROPIUM/ALBUTEROL 0.5-3(2.5)MG/3ML NEB HHN SCH (19:13)
[2023-11-25] MEDS: ATORVASTATIN CALCIUM 40MG TABLET PO SCH (21:25)
[2023-11-25] MEDS: FAMOTIDINE 20MG TABLET PO SCH (21:25)
[2023-11-25 22:00] VITALS: BP 119/71; PULSE 67; RESP 22; TEMP 35.72508; O2SAT 100
[2023-11-25 23:52] LABS: TROPONIN I HIGH SENSITIVITY 60 ng/L (3.0-34)
[2023-11-26] VITALS (13 sets, daily range): BP systolic 98–129; BP diastolic 57–97; PULSE 54–106; RESP 16–22; TEMP 35.78064–37.39188; O2SAT 91–100
[2023-11-26 06:43] LABS: CARBON DIOXIDE 30 mEq/L (21-32); CHLORIDE 105 mEq/L (98-107); HEMATOCRIT. 39.5 % (36.0-48.0); HEMOGLOBIN. 12.7 g/dL (12.0-16.0); MEAN CORPUSCULAR HEMOGLOBIN 29.9 pg (28.0-32.0); MEAN CORPUSCULAR HGB CONC 32.1 g/dL (31.0-37.0); MEAN CORPUSCULAR VOLUME 92.9 fL (81.0-99.0); MEAN PLATELET VOLUME 9.9 fl (7.4-10.4); PLATELET 247 x1000/uL (130-400); POTASSIUM 3.4 mEq/L (3.5-5.1); RED BLOOD CELL COUNT 4.25 mill/uL (4.2-5.4); RED CELL DISTRIBUTION WIDTH 15.6 % (11.6-14.6); SODIUM 142 mEq/L (136-145); WHITE BLOOD COUNT 7.3 x1000/uL (4.5-11.0)
[2023-11-26 06:44] LABS: CALCIUM 10.2 mg/dL (8.7-10.4)
[2023-11-26 06:49] LABS: GLUCOSE 138 mg/dL (70-105); UREA NITROGEN BLOOD 19 mg/dL (9-23)
[2023-11-26 07:20] LABS: DIFFERENTIAL COMMENT 1
[2023-11-26] MEDS: POTASSIUM CHLORIDE 20MEQ TABLET SR PO NR ×2 (09:19→18:53)
[2023-11-26] MEDS: SPIRONOLACTONE 50MG TABLET PO SCH (09:19)
[2023-11-26] MEDS: BIKTARVY PO SCH (10:39)
[2023-11-26] MEDS: ENTRESTO 24MG/26MG TABLET PO SCH (10:39)
[2023-11-26] MEDS: DIGOXIN 125MCG TABLET PO SCH (17:25)
[2023-11-26 18:34] LABS: PLATELET ESTIMATE NORMAL
[2023-11-26] MEDS: MAGNESIUM 2 G PREMIX 50 ML IV NR (20:12)
[2023-11-26] MEDS: METHYLPREDNISOLONE SOD SUCC 40MG/ML (ACT-O-VIAL) IV SCH (21:21)
[2023-11-27] VITALS (8 sets, daily range): BP systolic 103–119; BP diastolic 65–86; PULSE 47–105; RESP 16–22; TEMP 36.44736–36.83628; O2SAT 97–100
[2023-11-27 07:14] LABS: CHLORIDE 104 mEq/L (98-107); POTASSIUM 4.7 mEq/L (3.5-5.1); SODIUM 140 mEq/L (136-145)
[2023-11-27 07:15] LABS: CALCIUM 10.1 mg/dL (8.7-10.4); CARBON DIOXIDE 29 mEq/L (21-32)
[2023-11-27 07:20] LABS: CREATININE 1.1 mg/dL (0.6-1.0); GLUCOSE 119 mg/dL (70-105); UREA NITROGEN BLOOD 23 mg/dL (9-23)
[2023-11-27 08:10] LABS: HEMATOCRIT. 38.7 % (36.0-48.0); HEMOGLOBIN. 12.4 g/dL (12.0-16.0); MEAN CORPUSCULAR HEMOGLOBIN 29.7 pg (28.0-32.0); MEAN PLATELET VOLUME 10.3 fl (7.4-10.4); PLATELET 246 x1000/uL (130-400); RED BLOOD CELL COUNT 4.16 mill/uL (4.2-5.4); RED CELL DISTRIBUTION WIDTH 15.4 % (11.6-14.6); WHITE BLOOD COUNT 15.5 x1000/uL (4.5-11.0)
[2023-11-27 08:17] LABS: DIFFERENTIAL COMMENT 1
[2023-11-27] MEDS ORDERED: DIGO-34 PO (14:34)
[2023-11-27 17:55] LABS: ANISOCYTOSIS 1+; PLATELET ESTIMATE NORMAL
== END 2023-11-27 16:55 | disposition home or self-care (01) | DRG 194 ==
LOC: EDBEDREQ 12:01 → ER 12:48 → EDBEDREQ 13:22 → EDBEDREQTM 13:22 → 5WST 19:08 → 8WST 21:57
PROVIDERS: ADMIT Internal Medicine; ATTEND Internal Medicine
DX: I11.0 Hypertensive heart disease with heart failure (principal); J96.20 Acute and chronic respiratory failure, unspecified whether with hypoxia or hypercapnia; I24.89 Other forms of acute ischemic heart disease; J44.1 Chronic obstructive pulmonary disease with (acute) exacerbation; I50.23 Acute on chronic systolic (congestive) heart failure; I47.19 Other supraventricular tachycardia; Z99.81 Dependence on supplemental oxygen; E11.9 Type 2 diabetes mellitus without complications; F17.210 Nicotine dependence, cigarettes, uncomplicated; E78.5 Hyperlipidemia, unspecified; F41.9 Anxiety disorder, unspecified; I49.3 Ventricular premature depolarization; F32.A Depression, unspecified; Z79.51 Long term (current) use of inhaled steroids; Z79.82 Long term (current) use of aspirin; Z79.84 Long term (current) use of oral hypoglycemic drugs; Z79.899 Other long term (current) drug therapy; Z91.199 Patient's noncompliance with other medical treatment and regimen due to unspecified reason
CPT/HCPCS: 36415; 36600; 71045; 80048; 80061; 80162; 80305; 81003; 82375; 82607; 82746; 82805; 82962; 83036; 83880; 84439; 84443; 84484; 85025; 85379; 93005; 93970; 94640; 99285; J1160; J1650; J1940; J2919; J2920; J3475

== ENCOUNTER 2023-12-02 20:49 | Inpatient (IN) | payer MEDICAID ==
[~2023-12-02] VITALS: Ht 167.6 cm; Wt 74.8 kg
[~2023-12-02 20:49] MED LIST changes: +ALBU2.5V13 NEB; -AMI2 PO; +ATOR-2 PO; -ATOR40TA70 MT; -CHOL200059; +DIGO-34 PO; -FLUT1BLS12 IH; +FLUT1DIS3 IH; -FURO-151 MT; +FURO20TA4 PO; -HYDR-459 PO; -MED4 MT; +METO-396 PO; -MIDO10TA PO; -NAPR-679 PO; +SACU1TAB PO; +SPIR50TA5 PO; -UMEC62.5 IH
[2023-12-02 21:19] VITALS: RESP 29
[2023-12-02 21:45] LABS: CHLORIDE 108 mEq/L (98-107); SODIUM 139 mEq/L (136-145)
[2023-12-02 21:46] LABS: CALCIUM 9.8 mg/dL (8.7-10.4); CARBON DIOXIDE 22 mEq/L (21-32)
[2023-12-02 21:51] LABS: CREATININE 1.6 mg/dL (0.6-1.0); GLUCOSE 163 mg/dL (70-105); UREA NITROGEN BLOOD 16 mg/dL (9-23)
[2023-12-02 21:58] LABS: TROPONIN I HIGH SENSITIVITY 183 ng/L (3.0-34)
[2023-12-02 21:59] LABS: POTASSIUM 6.9 mEq/L (3.5-5.1)
[2023-12-02] MEDS ORDERED: CALCIUM GLUCONATE 1,000 MG in DEXT 5% WATER 100 ML IV ONE (23:00)
[2023-12-03] VITALS (10 sets, daily range): BP systolic 91–133; BP diastolic 61–97; PULSE 80–123; RESP 20–29; TEMP 35.66952–36.5292; O2SAT 97–100
[2023-12-03] MEDS: FUROSEMIDE 40MG/4ML VIAL IVP ONE
[2023-12-03] MEDS: SODIUM BICARBONATE 8.4% 50MEQ/50ML SYR IV ONE (00:01)
[2023-12-03] MEDS: INSULIN REGULAR (HUMULIN R) 1000UNITS/10ML VIAL IV ONE (00:06)
[2023-12-03] MEDS: DEXTROSE 50% WATER 50ML SYRINGE IV ONE (00:13)
[2023-12-03] MEDS: ALBUTEROL (0.083%) 2.5MG/3ML NEB HHN SCH (01:09)
[2023-12-03] MEDS ORDERED: ONDANSETRON HCL 4MG/2ML INJ IV PRN (01:45)
[2023-12-03] MEDS ORDERED: MAGNESIUM/ALUMINUM HYDROXIDE/SIMETHICONE 30ML UDC PO PRN (01:45)
[2023-12-03] MEDS ORDERED: DOCUSATE SODIUM 100MG CAPSULE PO PRN (01:45)
[2023-12-03] MEDS ORDERED: CLONIDINE 0.1MG TABLET PO PRN (01:45)
[2023-12-03] MEDS: CALCIUM GLUCONATE 1GM PREMIX 50 ML IV NR (02:18)
[2023-12-03] MEDS: IPRATROPIUM/ALBUTEROL 0.5-3(2.5)MG/3ML NEB HHN PRN (06:20)
[2023-12-03] MEDS: FUROSEMIDE 40MG/4ML VIAL IVP SCH (09:00)
[2023-12-03] MEDS: PANTOPRAZOLE SODIUM 40 MG/VIAL IV SCH (09:18)
[2023-12-03 09:22] LABS: BASOPHILS % 0.8 % (0.0-2.0); EOSINOPHILS % 0.1 % (0.0-5.0); HEMATOCRIT. 40.9 % (36.0-48.0); LYMPHOCYTES % 11.1 % (20.0-50.0); MEAN CORPUSCULAR HEMOGLOBIN 29.2 pg (28.0-32.0); MEAN CORPUSCULAR HGB CONC 31.8 g/dL (31.0-37.0); MEAN PLATELET VOLUME 9.4 fl (7.4-10.4); MONOCYTES % 10.5 % (2.0-8.0); NEUTROPHILS % 77.5 % (40.0-76.0); PLATELET 234 x1000/uL (130-400); RED BLOOD CELL COUNT 4.44 mill/uL (4.2-5.4); RED CELL DISTRIBUTION WIDTH 15.8 % (11.6-14.6); WHITE BLOOD COUNT 14.1 x1000/uL (4.5-11.0)
[2023-12-03 09:36] LABS: CALCIUM 9.7 mg/dL (8.7-10.4); CHLORIDE 104 mEq/L (98-107); POTASSIUM 4.2 mEq/L (3.5-5.1); SODIUM 139 mEq/L (136-145)
[2023-12-03 09:37] LABS: CARBON DIOXIDE 30 mEq/L (21-32)
[2023-12-03 09:42] LABS: CREATININE 1.3 mg/dL (0.6-1.0); GLUCOSE 94 mg/dL (70-105); UREA NITROGEN BLOOD 24 mg/dL (9-23)
[2023-12-03 09:44] LABS: PHOSPHORUS 3.8 mg/dL (2.5-4.9)
[2023-12-03 09:45] LABS: CREATINE KINASE 58 IU/L (34-145); D-DIMER 2.38 mg/L FEU (<0.50); INR 1.3; PARTIAL THROMBOPLASTIN TIME 23.6 sec (23.4-31.0); PROTHROMBIN TIME 14.1 sec (9.6-11.0)
[2023-12-03 09:48] LABS: TROPONIN I HIGH SENSITIVITY 199 ng/L (3.0-34)
[2023-12-03] MEDS ORDERED: NON FORMULARY MED XX SCH (10:45)
[2023-12-03] MEDS: SPIRONOLACTONE 50MG TABLET PO SCH (11:39)
[2023-12-03] MEDS: CEFTRIAXONE 1GM/50ML 50 ML IV SCH (11:39)
[2023-12-03] MEDS: FUROSEMIDE 40MG/4ML VIAL IVP NR ×2 (11:39→17:42)
[2023-12-03] MEDS: ASPIRIN 81MG EC TABLET PO SCH (11:40)
[2023-12-03] MEDS: SERTRALINE HCL 25MG TABLET PO SCH (11:40)
[2023-12-03] MEDS: ENOXAPARIN 60MG/0.6ML SYR SUBCUT SCH (11:41)
[2023-12-03] MEDS: IPRATROPIUM/ALBUTEROL 0.5-3(2.5)MG/3ML NEB HHN SCH (12:26)
[2023-12-03] MEDS: DIGOXIN 500MCG/2ML AMP IV NR (17:41)
[2023-12-03 19:27] LABS: CREATINE KINASE 60 IU/L (34-145)
[2023-12-03 19:36] LABS: TROPONIN I HIGH SENSITIVITY 241 ng/L (3.0-34)
[2023-12-03] MEDS: AZITHROMYCIN 500MG/250ML 250 ML IV SCH (20:20)
[2023-12-03 20:30] LABS: BG BASE EXCESS 6.5 mmol/L (-2.0-2.0); BG CARBOXYHEMOGLOBIN 0.6 % (0.5-1.5); BG DEOXYHEMOGLOBIN 1.6 % (0.0-5.0); BG FRACTION INSPIRED OXYGEN 32; BG HCO3 ACT 31.6 mmol/L (22.0-26.0); BG OXYGEN SATURATION 98.4 % (92.0-98.5); BG OXYHEMOGLOBIN 97.8 % (94.0-97.0); BG PCO2 46.7 mmHg (35.0-45.0); BG PH 7.448 (7.350-7.450); BG PO2 112.1 mmHg (75.0-100.0); BG SAMPLE SITE RIGHT RADIAL; BG TOTAL HEMOGLOBIN 14.7 g/dL (12.0-18.0); BG VENT MODE NASAL CANNULA
[2023-12-03] MEDS: ATORVASTATIN CALCIUM 40MG TABLET PO SCH (20:34)
[2023-12-03] MEDS: BUDESONIDE 0.5MG/2ML NEB HHN NR (21:48)
[2023-12-04] VITALS (15 sets, daily range): BP systolic 97–134; BP diastolic 64–107; PULSE 97–137; RESP 18–35; TEMP 36.28068–36.9474; O2SAT 93–99
[2023-12-04 06:13] LABS: ABSOLUTE LYMPHOCYTES 1.9 x10E3/uL (0.7-3.1); ABSOLUTE MONOCYTES 1.5 x10E3/uL (0.1-0.9); ABSOLUTE NEUTROPHILS 11.2 x10E3/uL (1.4-7.0); BASOPHILS 0 % (Not Estab.); EOSINOPHILS 0 % (Not Estab.); HEMATOCRIT 43.2 % (34.0-46.6); HEMOGLOBIN 13.5 g/dL (11.1-15.9); IMMATURE GRANULOCYTES 1 % (Not Estab.); IMMATURE GRANULOCYTES ABSOLUTE 0.1 x10E3/uL (0.0-0.1); LYMPHOCYTES 13 % (Not Estab.); MEAN CORPUSCULAR HEMOGLOBIN 29.5 pg (26.6-33.0); MEAN CORPUSCULAR HGB CONC. 31.3 g/dL (31.5-35.7); MEAN CORPUSCULAR VOLUME 95 fL (79-97); MONOCYTES 10 % (Not Estab.); NEUTROPHILS 76 % (Not Estab.); PLATELETS 264 x10E3/uL (150-450); RBC 4.57 x10E6/uL (3.77-5.28); RED CELL DISTRIBUTION WIDTH 13.8 % (11.7-15.4); WBC 14.7 x10E3/uL (3.4-10.8)
[2023-12-04 07:56] LABS: POTASSIUM 4.8 mEq/L (3.5-5.1)
[2023-12-04 08:02] LABS: CREATININE 1.3 mg/dL (0.6-1.0)
[2023-12-04] MEDS: FUROSEMIDE 20MG/2ML VIAL IVP SCH (08:31)
[2023-12-04 09:11] LABS: % CD 3 POS. LYMPHOCYTES 74.9 % (57.5-86.2); % CD 4 POS. LYMPHOCYTES 44.2 % (30.8-58.5); % CD 8 POS. LYMPH 29.9 % (12.0-35.5); ABSOLUTE CD 3 1423 /uL (622-2402); ABSOLUTE CD 4 HELPER 840 /uL (359-1519); ABSOLUTE CD 8 SUPPRESSOR 568 /uL (109-897); CD4/CD8 RATIO 1.48 (0.92-3.72)
[2023-12-04 11:02] LABS: BASOPHILS % 0.5 % (0.0-2.0); EOSINOPHILS % 2.6 % (0.0-5.0); LYMPHOCYTES % 19.3 % (20.0-50.0); MEAN CORPUSCULAR HEMOGLOBIN 29.2 pg (28.0-32.0); MEAN CORPUSCULAR HGB CONC 31.2 g/dL (31.0-37.0); MEAN CORPUSCULAR VOLUME 93.5 fL (81.0-99.0); MEAN PLATELET VOLUME 10.1 fl (7.4-10.4); MONOCYTES % 10.7 % (2.0-8.0); NEUTROPHILS % 66.9 % (40.0-76.0); PLATELET 231 x1000/uL (130-400); RED BLOOD CELL COUNT 4.81 mill/uL (4.2-5.4); WHITE BLOOD COUNT 9.7 x1000/uL (4.5-11.0)
[2023-12-04] MEDS: CEFTRIAXONE 1GM/50ML 50 ML IV SCH (11:11)
[2023-12-04 11:39] LABS: DIGOXIN 1.1 ng/mL (0.8-2.0)
[2023-12-04] MEDS: DIGOXIN 125MCG TABLET PO SCH (18:38)
[2023-12-04 19:38] LABS: TROPONIN I HIGH SENSITIVITY 194 ng/L (3.0-34)
[2023-12-04] MEDS: IPRATROPIUM BROMIDE (0.02%) 0.5MG/2.5ML NEB HHN SCH (20:44)
[2023-12-04] MEDS: BUDESONIDE 0.5MG/2ML NEB HHN SCH (20:44)
[2023-12-04] MEDS: AMIODARONE 150MG/100ML 100 ML IV NR (20:55)
[2023-12-04] MEDS: AMIODARONE HCL 900 MG in DEXT 5% WATER 482 ML IV SCH (21:33)
[2023-12-05] VITALS (22 sets, daily range): BP systolic 83–130; BP diastolic 45–105; PULSE 83–116; RESP 15–52; TEMP 34.725–36.83628; O2SAT 86–100
[2023-12-05 01:14] LABS: CLARITY URINE TURBID (CLEAR); COLOR URINE YELLOW (YELLOW); GLUCOSE URINE 2+ (NEGATIVE); KETONES URINE TRACE (NEGATIVE); LEUKOCYTE ESTERASE URINE 3+ (NEGATIVE); NITRITE URINE NEGATIVE (NEGATIVE); OCCULT BLOOD URINE TRACE (NEGATIVE); PROTEIN URINE 2+ (NEGATIVE); SPECIFIC GRAVITY URINE 1.021 (1.005-1.030); UROBILINOGEN URINE 0.2 E.U./dL (0.2-1.0)
[2023-12-05 01:26] LABS: *AMPHETAMINES SCREEN URINE NEGATIVE (NEGATIVE); *BARBITURATES SCREEN URINE NEGATIVE (NEGATIVE); *BENZODIAZEPINES SCREEN URINE NEGATIVE (NEGATIVE); *COCAINE SCREEN URINE NEGATIVE (NEGATIVE); METHADONE URINE SCREEN NEGATIVE (NEGATIVE); OPIATES URINE SCREEN NEGATIVE (NEGATIVE)
[2023-12-05 01:27] LABS: CANNABINOID URINE SCREEN NEGATIVE (NEGATIVE); ECSTASY MDMA SCREEN URINE NEGATIVE (NEGATIVE); PHENCYCLIDINE URINE SCREEN NEGATIVE (NEGATIVE)
[2023-12-05 02:04] LABS: RBC URINE 15-25 /hpf (0-2); WBC URINE TNTC /hpf (0-2)
[2023-12-05 02:05] LABS: SQUAMOUS EPITHELIAL CELL URINE 1+ /lpf (RARE/1+)
[2023-12-05 02:08] LABS: BACTERIA URINE 1+
[2023-12-05 06:10] LABS: POTASSIUM 4.2 mEq/L (3.5-5.1)
[2023-12-05 06:11] LABS: CALCIUM 9.3 mg/dL (8.7-10.4)
[2023-12-05 06:16] LABS: CREATININE 1.5 mg/dL (0.6-1.0)
[2023-12-05 06:21] LABS: BASOPHILS % 0.3 % (0.0-2.0); EOSINOPHILS % 2.4 % (0.0-5.0); HEMATOCRIT. 44.4 % (36.0-48.0); HEMOGLOBIN. 14.1 g/dL (12.0-16.0); LYMPHOCYTES % 26.4 % (20.0-50.0); MEAN CORPUSCULAR HGB CONC 31.9 g/dL (31.0-37.0); MEAN CORPUSCULAR VOLUME 94.2 fL (81.0-99.0); MEAN PLATELET VOLUME 10.2 fl (7.4-10.4); NEUTROPHILS % 58.9 % (40.0-76.0); PLATELET 234 x1000/uL (130-400); RED BLOOD CELL COUNT 4.71 mill/uL (4.2-5.4); RED CELL DISTRIBUTION WIDTH 16.2 % (11.6-14.6); WHITE BLOOD COUNT 10.3 x1000/uL (4.5-11.0)
[2023-12-05] MEDS: FAMOTIDINE 20MG/2ML VIAL IV SCH (10:04)
[2023-12-05] MEDS: ACETAMINOPHEN 325MG TABLET PO PRN (10:05)
[2023-12-05] MEDS ORDERED: HYDRALAZINE 20MG/ML VIAL IV PRN (10:15)
[2023-12-05] MEDS: HYDROXYZINE 25MG TABLET PO NR (13:22)
[2023-12-05] MEDS: BICTEGRAVIR 50MG/EMTRICITABINE 200MG/TENOFOVIR ALA 25MG PO SCH (13:27)
[2023-12-05] MEDS: FUROSEMIDE 40MG/4ML VIAL IVP NR (16:20)
[2023-12-05 17:11] LABS: *HIV-1 RNA BY PCR <20 copies/mL (.)
[2023-12-05] MEDS: NITROGLYCERIN 0.4MG TABLET SL SL PRN (23:07)
[2023-12-06] VITALS (16 sets, daily range): BP systolic 95–132; BP diastolic 77–111; PULSE 81–131; RESP 20–35; TEMP 34.61388–36.9474; O2SAT 95–100
[2023-12-06 08:23] LABS: BASOPHILS % 0.6 % (0.0-2.0); EOSINOPHILS % 1.2 % (0.0-5.0); HEMATOCRIT. 38.9 % (36.0-48.0); HEMOGLOBIN. 12.6 g/dL (12.0-16.0); LYMPHOCYTES % 14.8 % (20.0-50.0); MEAN CORPUSCULAR HEMOGLOBIN 29.6 pg (28.0-32.0); MEAN CORPUSCULAR HGB CONC 32.5 g/dL (31.0-37.0); MEAN CORPUSCULAR VOLUME 91.3 fL (81.0-99.0); MONOCYTES % 7.8 % (2.0-8.0); NEUTROPHILS % 75.6 % (40.0-76.0); PLATELET 208 x1000/uL (130-400); RED BLOOD CELL COUNT 4.26 mill/uL (4.2-5.4); RED CELL DISTRIBUTION WIDTH 15.8 % (11.6-14.6); WHITE BLOOD COUNT 10.2 x1000/uL (4.5-11.0)
[2023-12-06 08:28] LABS: CHLORIDE 98 mEq/L (98-107); POTASSIUM 3.8 mEq/L (3.5-5.1); SODIUM 134 mEq/L (136-145)
[2023-12-06 08:29] LABS: CALCIUM 9.3 mg/dL (8.7-10.4); CARBON DIOXIDE 29 mEq/L (21-32)
[2023-12-06 08:34] LABS: CREATININE 1.8 mg/dL (0.6-1.0); GLUCOSE 81 mg/dL (70-105); UREA NITROGEN BLOOD 29 mg/dL (9-23)
[2023-12-06 08:39] LABS: TROPONIN I HIGH SENSITIVITY 166 ng/L (3.0-34)
[2023-12-06] MEDS ORDERED: *PATIENT'S OWN MEDICATION STORAGE XX SCH (09:15)
[2023-12-06] MEDS: SPIRONOLACTONE 25MG TABLET PO SCH (09:19)
[2023-12-06] MEDS: HYDROXYZINE 10MG TABLET PO PRN (17:08)
[2023-12-06] MEDS ORDERED: NITROGLYCERIN 0.4MG TABLET SL SL PRN (17:45)
[2023-12-06] MEDS: NITROGLYCERIN 0.4MG TABLET SL SL PRN (17:54)
[2023-12-06 19:52] LABS: TROPONIN I HIGH SENSITIVITY 193 ng/L (3.0-34)
[2023-12-07] VITALS (19 sets, daily range): BP systolic 88–128; BP diastolic 67–105; PULSE 77–115; RESP 16–33; TEMP 36.114–36.72516; O2SAT 97–100
[2023-12-07 06:05] LABS: HEMATOCRIT 39.6 % (36.0-48.0); HEMOGLOBIN 12.4 g/dL (12.0-16.0); MEAN CORPUSCULAR HEMOGLOBIN 29.4 pg (28.0-32.0); MEAN CORPUSCULAR HGB CONC 31.2 g/dL (31.0-37.0); MEAN CORPUSCULAR VOLUME 94.3 fL (81.0-99.0); PLATELET 171 x1000/uL (130-400); RED CELL DISTRIBUTION WIDTH 16.3 % (11.6-14.6); WHITE BLOOD COUNT 13.2 x1000/uL (4.5-11.0)
[2023-12-07 06:21] LABS: POTASSIUM 4.3 mEq/L (3.5-5.1)
[2023-12-07 06:22] LABS: CALCIUM 9.6 mg/dL (8.7-10.4)
[2023-12-07 06:27] LABS: CREATININE 1.8 mg/dL (0.6-1.0)
[2023-12-07] MEDS: FUROSEMIDE 40MG TABLET PO SCH (08:43)
[2023-12-07] MEDS: AMIODARONE 200MG TABLET PO SCH (08:43)
[2023-12-07] MEDS: IPRATROPIUM BROMIDE (0.02%) 0.5MG/2.5ML NEB HHN PRN (18:46)
[2023-12-07] MEDS: METOPROLOL TARTRATE 25MG TABLET PO NR (19:39)
[2023-12-07] MEDS: GUAIFENESIN 200MG/10ML SUGAR FREE UDC PO PRN (21:41)
[2023-12-08] VITALS (19 sets, daily range): BP systolic 89–136; BP diastolic 78–114; PULSE 82–129; RESP 18–39; TEMP 36.114–37.00296; O2SAT 97–100
[2023-12-08] MEDS: BICTEGRAVIR 50MG/EMTRICITABINE 200MG/TENOFOVIR ALA 25MG PO SCH (10:25)
[2023-12-08 11:42] LABS: CREATINE KINASE 72 IU/L (34-145)
[2023-12-08] MEDS: FUROSEMIDE 40MG TABLET PO SCH (21:04)
[2023-12-08] MEDS: LORAZEPAM 2MG/ML INJ IV NR (22:44)
[2023-12-09] VITALS (16 sets, daily range): BP systolic 98–134; BP diastolic 40–115; PULSE 80–131; RESP 20–38; TEMP 36.44736–37.11408; O2SAT 98–100
[2023-12-09 06:23] LABS: HEMATOCRIT. 41.7 % (36.0-48.0); HEMOGLOBIN. 13.5 g/dL (12.0-16.0); MEAN CORPUSCULAR HEMOGLOBIN 29.9 pg (28.0-32.0); MEAN CORPUSCULAR HGB CONC 32.4 g/dL (31.0-37.0); MEAN CORPUSCULAR VOLUME 92.3 fL (81.0-99.0); MEAN PLATELET VOLUME 10.3 fl (7.4-10.4); PLATELET 169 x1000/uL (130-400); POTASSIUM 4.7 mEq/L (3.5-5.1); RED BLOOD CELL COUNT 4.51 mill/uL (4.2-5.4); RED CELL DISTRIBUTION WIDTH 16.4 % (11.6-14.6); WHITE BLOOD COUNT 16.1 x1000/uL (4.5-11.0)
[2023-12-09 06:24] LABS: CALCIUM 9.4 mg/dL (8.7-10.4)
[2023-12-09 06:29] LABS: CREATININE 2.3 mg/dL (0.6-1.0)
[2023-12-09 06:47] LABS: HEPATITIS B SURFACE ANTIGEN NEGATIVE (Negative)
[2023-12-09 07:04] LABS: DIFFERENTIAL COMMENT 1
[2023-12-09 07:09] LABS: HEPATITIS C AB NON REACTIVE (Neg) (Negative)
[2023-12-09] MEDS: SODIUM CHLORIDE 0.9% 1,000 ML IV SCH (13:23)
[2023-12-09] MEDS: CEFTRIAXONE 1GM/50ML 50 ML IV SCH (17:19)
[2023-12-09 22:32] LABS: PLATELET ESTIMATE NORMAL
[2023-12-10] VITALS (68 sets, daily range): BP systolic 85–147; BP diastolic 62–116; PULSE 56–133; RESP 15–32; TEMP 36.44736–37.00296; O2SAT 88–100
[2023-12-10] MEDS: FUROSEMIDE 40MG/4ML VIAL IVP NR (08:55)
[2023-12-10 09:08] LABS: BG CARBOXYHEMOGLOBIN 0.3 % (0.5-1.5); BG FRACTION INSPIRED OXYGEN 60; BG HCO3 ACT 21.9 mmol/L (21.0-28.0); BG METHEMOGLOBIN 0.3 % (0.5-1.5); BG OXYHEMOGLOBIN 99.4 % (94.0-98.0); BG PCO2 34.8 mmHg (32.0-45.0); BG PH 7.416 (7.350-7.450); BG PO2 274.1 mmHg (83.0-108.0); BG SAMPLE SITE RIGHT BRACHIAL; BG TOTAL HEMOGLOBIN 13.6 g/dL (12.0-16.0); BG VENT MODE MASK - BIPAP
[2023-12-10] MEDS: METHYLPREDNISOLONE SOD SUCC 125MG/2ML (ACT-O-VIAL) IV NR (09:21)
[2023-12-10] MEDS: IPRATROPIUM BROMIDE (0.02%) 0.5MG/2.5ML NEB HHN SCH (10:18)
[2023-12-10 10:46] LABS: BASOPHILS % 0.2 % (0.0-2.0); EOSINOPHILS % 0.2 % (0.0-5.0); HEMATOCRIT. 40.6 % (36.0-48.0); HEMOGLOBIN. 12.6 g/dL (12.0-16.0); LYMPHOCYTES % 7.4 % (20.0-50.0); MEAN CORPUSCULAR HEMOGLOBIN 28.7 pg (28.0-32.0); MEAN CORPUSCULAR HGB CONC 31.2 g/dL (31.0-37.0); MEAN CORPUSCULAR VOLUME 92.1 fL (81.0-99.0); MEAN PLATELET VOLUME 10.1 fl (7.4-10.4); MONOCYTES % 3.1 % (2.0-8.0); NEUTROPHILS % 89.1 % (40.0-76.0); PLATELET 201 x1000/uL (130-400); RED BLOOD CELL COUNT 4.41 mill/uL (4.2-5.4); RED CELL DISTRIBUTION WIDTH 15.9 % (11.6-14.6); WHITE BLOOD COUNT 15.9 x1000/uL (4.5-11.0)
[2023-12-10] MEDS: NOREPINEPHRINE 8MG/250ML PMX 250 ML IV PRN (11:00)
[2023-12-10 11:02] LABS: CHLORIDE 99 mEq/L (98-107); POTASSIUM 4.8 mEq/L (3.5-5.1); SODIUM 134 mEq/L (136-145)
[2023-12-10 11:03] LABS: CALCIUM 9.2 mg/dL (8.7-10.4); CARBON DIOXIDE 27 mEq/L (21-32)
[2023-12-10 11:08] LABS: GLUCOSE 171 mg/dL (70-105); UREA NITROGEN BLOOD 32 mg/dL (9-23)
[2023-12-10 11:14] LABS: TROPONIN I HIGH SENSITIVITY 174 ng/L (3.0-34)
[2023-12-10 11:21] LABS: DIGOXIN 2.1 ng/mL (0.8-2.0)
[2023-12-10] MEDS: PROPOFOL 10MG/ML 100ML 100 ML IV PRN (12:34)
[2023-12-10 13:19] LABS: BG BASE EXCESS -4.1 mmol/L (-2.0-3.0); BG CARBOXYHEMOGLOBIN 0.5 % (0.5-1.5); BG DEOXYHEMOGLOBIN 3.7 % (0.0-5.0); BG FRACTION INSPIRED OXYGEN 50; BG HCO3 ACT 22.2 mmol/L (21.0-28.0); BG METHEMOGLOBIN 0.3 % (0.5-1.5); BG OXYGEN SATURATION 96.3 % (94.0-98.0); BG OXYHEMOGLOBIN 95.5 % (94.0-98.0); BG PCO2 45.2 mmHg (32.0-45.0); BG PO2 92.2 mmHg (83.0-108.0); BG SAMPLE SITE RIGHT BRACHIAL; BG TOTAL HEMOGLOBIN 14.1 g/dL (12.0-16.0); BG VENT MODE VENT - AC
[2023-12-10] MEDS: AZITHROMYCIN 500MG/250ML 250 ML IV SCH (15:08)
[2023-12-11] VITALS (150 sets, daily range): BP systolic 30–194; BP diastolic 10–179; PULSE 32–138; RESP 14–53; TEMP 36.6696–36.9474; O2SAT 36–100
[2023-12-11] MEDS: ACETYLCYSTEINE 200MG/ML 20% VIAL 4ML INH SCH (00:39)
[2023-12-11 07:20] LABS: HEMOGLOBIN. 12.7 g/dL (12.0-16.0); MEAN CORPUSCULAR HEMOGLOBIN 29.5 pg (28.0-32.0); MEAN CORPUSCULAR HGB CONC 32.5 g/dL (31.0-37.0); MEAN CORPUSCULAR VOLUME 90.9 fL (81.0-99.0); MEAN PLATELET VOLUME 10.9 fl (7.4-10.4); PLATELET 194 x1000/uL (130-400); RED BLOOD CELL COUNT 4.29 mill/uL (4.2-5.4); RED CELL DISTRIBUTION WIDTH 16.3 % (11.6-14.6); WHITE BLOOD COUNT 13.6 x1000/uL (4.5-11.0)
[2023-12-11 07:31] LABS: DIFFERENTIAL COMMENT 1; POTASSIUM 4.3 mEq/L (3.5-5.1)
[2023-12-11 07:32] LABS: CALCIUM 8.9 mg/dL (8.7-10.4)
[2023-12-11 07:37] LABS: CREATININE 1.9 mg/dL (0.6-1.0)
[2023-12-11] MEDS ORDERED: IPRATROPIUM/ALBUTEROL 0.5-3(2.5)MG/3ML NEB HHN PRN (09:15)
[2023-12-11] MEDS: DEXT 5%/0.9% NACL 1,000 ML IV ONE (10:03)
[2023-12-11] MEDS: IPRATROPIUM/ALBUTEROL 0.5-3(2.5)MG/3ML NEB HHN SCH (12:00)
[2023-12-11] MEDS: PHENYLEPHRINE 50MG/250ML PMX 250 ML IV PRN (12:36)
[2023-12-11] MEDS ORDERED: VASOPRESSIN 20 UNIT in SODIUM CHLORIDE 0.9% 99 ML IV PRN (13:00)
[2023-12-11] MEDS ORDERED: CALCIUM CHLORIDE 1GM/10ML SYR IV ONE (13:00)
[2023-12-11] MEDS: VASOPRESSIN 20 UNIT in SODIUM CHLORIDE 0.9% 99 ML IV PRN (13:19)
[2023-12-11] MEDS: DOPAMINE 800MG PREMIX (DOUBLE) 250 ML IV PRN (13:26)
[2023-12-11] MEDS: MEROPENEM 1G/100ML 100 ML IV SCH (14:34)
[2023-12-11] MEDS: PHENYLEPHRINE 100 MG in DEXT 5% WATER 240 ML IV PRN (14:44)
[2023-12-11] MEDS ORDERED: EPINEPHRINE 10 MG in SODIUM CHLORIDE 0.9% 240 ML IV PRN (15:00)
[2023-12-11] MEDS: EPINEPHRINE 10 MG in SODIUM CHLORIDE 0.9% 240 ML IV PRN (15:26)
[2023-12-11] MEDS: HYDROCORTISONE SOD SUCCINATE 100 MG/2 ML VIAL IV SCH (15:29)
[2023-12-11] MEDS: PANTOPRAZOLE SODIUM 40 MG/VIAL IV NR (15:29)
[2023-12-11 15:43] LABS: ANISOCYTOSIS 1+; PLATELET ESTIMATE NORMAL
[2023-12-11 16:04] LABS: CHLORIDE 109 mEq/L (98-107); SODIUM 137 mEq/L (136-145)
[2023-12-11 16:05] LABS: CALCIUM 8.1 mg/dL (8.7-10.4)
[2023-12-11 16:10] LABS: UREA NITROGEN BLOOD 42 mg/dL (9-23)
[2023-12-11 16:12] LABS: ALBUMIN 2.5 g/dL (3.2-4.8)
[2023-12-11 16:13] LABS: BILIRUBIN TOTAL 1.2 mg/dL (0.1-1.0)
[2023-12-11 16:23] LABS: ALANINE AMINOTRANSFERASE 2374 IU/L (10-49)
[2023-12-11 16:24] LABS: ASPARTATE AMINOTRANSFERASE 1802 IU/L (<34)
[2023-12-11 16:40] LABS: CREATININE 2.5 mg/dL (0.6-1.0); PROTEIN TOTAL 3.8 g/dL (6.0-8.3)
[2023-12-11 16:42] LABS: POTASSIUM 7.2 mEq/L (3.5-5.1)
[2023-12-11 16:43] LABS: CARBON DIOXIDE < 10 mEq/L (21-32); GLUCOSE 49 mg/dL (70-105); TROPONIN I HIGH SENSITIVITY 341 ng/L (3.0-34)
[2023-12-11] MEDS: SODIUM BICARBONATE 8.4% 50MEQ/50ML SYR IV NR (17:06)
[2023-12-11] MEDS: DEXTROSE 50% WATER 50ML SYRINGE IV ONE (17:17)
[2023-12-11] MEDS: FUROSEMIDE 40MG/4ML VIAL IV NR (17:17)
[2023-12-11] MEDS: CALCIUM CHLORIDE 1GM/10ML SYR IV NR (17:18)
[2023-12-11] MEDS: ALBUTEROL (0.083%) 2.5MG/3ML NEB HHN NR (17:23)
[2023-12-11 17:26] LABS: BG BASE EXCESS -22.8 mmol/L (-2.0-3.0); BG CARBOXYHEMOGLOBIN 0.3 % (0.5-1.5); BG DEOXYHEMOGLOBIN 5.8 % (0.0-5.0); BG FRACTION INSPIRED OXYGEN 100; BG HCO3 ACT 6.8 mmol/L (21.0-28.0); BG METHEMOGLOBIN 0.3 % (0.5-1.5); BG OXYGEN SATURATION 94.2 % (94.0-98.0); BG OXYHEMOGLOBIN 93.6 % (94.0-98.0); BG PCO2 26.8 mmHg (32.0-45.0); BG PO2 102.3 mmHg (83.0-108.0); BG SAMPLE SITE ALINE; BG TOTAL HEMOGLOBIN 11.7 g/dL (12.0-16.0); BG VENT MODE VENT - AC
[2023-12-11 17:55] LABS: DIFFERENTIAL COMMENT 1; HEMATOCRIT. 35.2 % (36.0-48.0); HEMOGLOBIN. 10.5 g/dL (12.0-16.0); MEAN CORPUSCULAR HEMOGLOBIN 29.2 pg (28.0-32.0); MEAN CORPUSCULAR VOLUME 97.3 fL (81.0-99.0); MEAN PLATELET VOLUME 10.1 fl (7.4-10.4); PLATELET 105 x1000/uL (130-400); RED BLOOD CELL COUNT 3.62 mill/uL (4.2-5.4); RED CELL DISTRIBUTION WIDTH 16.7 % (11.6-14.6); WHITE BLOOD COUNT 21.7 x1000/uL (4.5-11.0)
[2023-12-11] MEDS: SODIUM BICARBONATE 150 MEQ in DEXTROSE 5% WATER 850 ML IV SCH (18:09)
[2023-12-11 20:02] LABS: PLATELET ESTIMATE NORMAL
[2023-12-11] MEDS: NOREPINEPHRINE 32 MG in DEXT 5% WATER 218 ML IV PRN (23:50)
[2023-12-12] VITALS (116 sets, daily range): BP systolic 60–233; BP diastolic 19–214; PULSE 76–119; RESP 15–35; TEMP 35.22504–37.503; O2SAT 98–100
[2023-12-12] MEDS: MEROPENEM 1G/100ML 100 ML IV SCH (02:47)
[2023-12-12 05:13] LABS: HEMATOCRIT. 42.7 % (36.0-48.0); HEMOGLOBIN. 12.3 g/dL (12.0-16.0); MEAN CORPUSCULAR HEMOGLOBIN 29.5 pg (28.0-32.0); MEAN CORPUSCULAR HGB CONC 28.8 g/dL (31.0-37.0); MEAN CORPUSCULAR VOLUME 102.4 fL (81.0-99.0); MEAN PLATELET VOLUME 10.3 fl (7.4-10.4); PLATELET 145 x1000/uL (130-400); RED BLOOD CELL COUNT 4.17 mill/uL (4.2-5.4); RED CELL DISTRIBUTION WIDTH 17.3 % (11.6-14.6); WHITE BLOOD COUNT 34.2 x1000/uL (4.5-11.0)
[2023-12-12 05:26] LABS: DIFFERENTIAL COMMENT 1
[2023-12-12 05:34] LABS: CHLORIDE 105 mEq/L (98-107); POTASSIUM 5.3 mEq/L (3.5-5.1); SODIUM 140 mEq/L (136-145)
[2023-12-12 05:35] LABS: CALCIUM 8.1 mg/dL (8.7-10.4); CARBON DIOXIDE 12 mEq/L (21-32)
[2023-12-12 05:40] LABS: GLUCOSE 180 mg/dL (70-105); UREA NITROGEN BLOOD 41 mg/dL (9-23)
[2023-12-12 06:59] LABS: PHOSPHORUS 10.6 mg/dL (2.5-4.9)
[2023-12-12] MEDS: IOHEXOL-350 100 ML BOTTLE ONE (08:25)
[2023-12-12] MEDS: LIDOCAINE HCL 1% 10 MG/ML 10ML VIAL ONE (08:25)
[2023-12-12] MEDS: PANTOPRAZOLE SODIUM 40 MG/VIAL IV SCH (08:25)
[2023-12-12] MEDS: ACETAMINOPHEN 325MG TABLET PO PRN (08:27)
[2023-12-12] MEDS: ENOXAPARIN 80MG/0.8ML SYR SUBCUT SCH (08:31)
[2023-12-12] MEDS ORDERED: SODIUM POLYSTYRENE SULFONATE 15 G/60 ML BOT PO NR (09:00)
[2023-12-12 10:10] LABS: BG BASE EXCESS -7.4 mmol/L (-2.0-3.0); BG CARBOXYHEMOGLOBIN 0.3 % (0.5-1.5); BG DEOXYHEMOGLOBIN 0.1 % (0.0-5.0); BG FRACTION INSPIRED OXYGEN 100; BG HCO3 ACT 16.6 mmol/L (21.0-28.0); BG METHEMOGLOBIN 0.3 % (0.5-1.5); BG OXYGEN SATURATION 99.9 % (94.0-98.0); BG OXYHEMOGLOBIN 99.3 % (94.0-98.0); BG PCO2 29.4 mmHg (32.0-45.0); BG PO2 343.7 mmHg (83.0-108.0); BG SAMPLE SITE ALINE; BG TOTAL HEMOGLOBIN 12.5 g/dL (12.0-16.0); BG TOTAL RESPIRATORY RATE 24 b/min; BG VENT MODE VENT - AC
[2023-12-12] MEDS: SODIUM BICARBONATE 8.4% 50MEQ/50ML SYR IV NR (11:07)
[2023-12-12 11:12] LABS: NUCLEATED RED BLOOD CELLS 2 /100 WBC; PLATELET ESTIMATE NORMAL
[2023-12-12 11:13] LABS: ANISOCYTOSIS 2+
[2023-12-12] MEDS ORDERED: SEVELAMER CARBONATE 800 MG TABLET PO SCH (12:00)
[2023-12-12] MEDS: DEXTROSE 50% WATER 50ML SYRINGE IV NR (12:45)
[2023-12-12] MEDS: LANTHANUM CARBONATE 500MG CHEW TABLET PO SCH (13:27)
[2023-12-12] MEDS: SODIUM POLYSTYRENE SULFONATE 15 G/60 ML BOT PO NR (13:27)
[2023-12-12] MEDS: MIDODRINE HCL 5MG TABLET PO SCH (17:04)
[2023-12-13] VITALS (111 sets, daily range): BP systolic 70–180; BP diastolic 43–162; PULSE 88–125; RESP 17–32; TEMP 29.4468–37.28076; O2SAT 94–100
[2023-12-13 05:22] LABS: CHLORIDE 101 mEq/L (98-107); POTASSIUM 3.8 mEq/L (3.5-5.1); SODIUM 139 mEq/L (136-145)
[2023-12-13 05:23] LABS: CALCIUM 6.7 mg/dL (8.7-10.4); CARBON DIOXIDE 25 mEq/L (21-32)
[2023-12-13 05:25] LABS: HEMATOCRIT. 39.4 % (36.0-48.0); HEMOGLOBIN. 12.9 g/dL (12.0-16.0); MEAN CORPUSCULAR HEMOGLOBIN 29.5 pg (28.0-32.0); MEAN CORPUSCULAR HGB CONC 32.7 g/dL (31.0-37.0); MEAN CORPUSCULAR VOLUME 90.3 fL (81.0-99.0); PLATELET 103 x1000/uL (130-400); RED BLOOD CELL COUNT 4.36 mill/uL (4.2-5.4); RED CELL DISTRIBUTION WIDTH 16.1 % (11.6-14.6)
[2023-12-13 05:28] LABS: GLUCOSE 89 mg/dL (70-105); UREA NITROGEN BLOOD 66 mg/dL (9-23)
[2023-12-13 06:34] LABS: DIFFERENTIAL COMMENT 1
[2023-12-13] MEDS: MEROPENEM 500MG/50ML IV SCH (08:34)
[2023-12-13] MEDS: ENOXAPARIN 80MG/0.8ML SYR SUBCUT SCH (08:39)
[2023-12-13] MEDS: MIDODRINE HCL 5MG TABLET PO SCH (09:33)
[2023-12-13 09:37] LABS: ANISOCYTOSIS 1+; NUCLEATED RED BLOOD CELLS 8 /100 WBC; PLATELET ESTIMATE DECREASED
[2023-12-13 11:06] LABS: BG BASE EXCESS 2.4 mmol/L (-2.0-3.0); BG CARBOXYHEMOGLOBIN 0.3 % (0.5-1.5); BG DEOXYHEMOGLOBIN 1.7 % (0.0-5.0); BG FRACTION INSPIRED OXYGEN 35; BG HCO3 ACT 24.6 mmol/L (21.0-28.0); BG METHEMOGLOBIN 0.3 % (0.5-1.5); BG OXYGEN SATURATION 98.3 % (94.0-98.0); BG OXYHEMOGLOBIN 97.7 % (94.0-98.0); BG PCO2 30.8 mmHg (32.0-45.0); BG PO2 112.6 mmHg (83.0-108.0); BG SAMPLE SITE RIGHT RADIAL; BG TOTAL HEMOGLOBIN 13.4 g/dL (12.0-16.0); BG VENT MODE VENT - AC
[2023-12-13 12:41] LABS: HEPATITIS B SURFACE ANTIGEN NEGATIVE (Negative)
[2023-12-13 13:02] LABS: HEPATITIS A AB IGM NEGATIVE (Negative); HEPATITIS B CORE AB IGM NEGATIVE (Negative)
[2023-12-13 13:03] LABS: HEPATITIS C AB NON REACTIVE (Neg) (Negative)
[2023-12-13] MEDS: LACTOBACILLUS GG CAPSULE GT SCH (17:48)
[2023-12-13] MEDS: DIAZEPAM 5 MG/ML 2ML SYR IV NR (23:50)
[2023-12-14] VITALS (23 sets, daily range): BP systolic 54–130; BP diastolic 11–95; PULSE 0–128; RESP 18–32; TEMP 33.00264–35.66952; O2SAT 58–100
[2023-12-14] MEDS ORDERED: CALCIUM CHLORIDE 1GM/10ML SYR IV ONE (06:00)
[2023-12-14] MEDS ORDERED: MEROPENEM 500MG/50ML IV SCH (09:00)
[2023-12-15 17:06] LABS: ANA IFA Negative (.)
== END 2023-12-14 11:06 | DRG 720 ==
LOC: ER 20:49 → EDBEDREQ 23:18 → EDBEDREQTM 23:18 → EDBEDREQSVC 12-03 09:37 → 8WST 12-03 16:52 → 5EST 12-03 21:20 → 3WST 12-09 18:20 → MICUNO 12-10 09:59
PROVIDERS: ADMIT Hospitalist; ATTEND Hospitalist
PROC: 5A09357 Assistance with Respiratory Ventilation, Less than 24 Consecutive Hours, Continuous Positive Airway Pressure (ICD-10-PCS; principal; 2023-12-02)
PROC: 5A09357 Assistance with Respiratory Ventilation, Less than 24 Consecutive Hours, Continuous Positive Airway Pressure (ICD-10-PCS; 2023-12-03)
PROC: 5A09357 Assistance with Respiratory Ventilation, Less than 24 Consecutive Hours, Continuous Positive Airway Pressure (ICD-10-PCS; 2023-12-05)
PROC: 5A09357 Assistance with Respiratory Ventilation, Less than 24 Consecutive Hours, Continuous Positive Airway Pressure (ICD-10-PCS; 2023-12-06)
PROC: 5A1945Z Respiratory Ventilation, 24-96 Consecutive Hours (ICD-10-PCS; 2023-12-10)
PROC: 5A09357 Assistance with Respiratory Ventilation, Less than 24 Consecutive Hours, Continuous Positive Airway Pressure (ICD-10-PCS; 2023-12-10)
PROC: 0BH17EZ Insertion of Endotracheal Airway into Trachea, Via Natural or Artificial Opening (ICD-10-PCS; 2023-12-10)
PROC: 02HV33Z Insertion of Infusion Device into Superior Vena Cava, Percutaneous Approach (ICD-10-PCS; 2023-12-10)
PROC: B548ZZA Ultrasonography of Superior Vena Cava, Guidance (ICD-10-PCS; 2023-12-10)
PROC: 03HY32Z Insertion of Monitoring Device into Upper Artery, Percutaneous Approach (ICD-10-PCS; 2023-12-11)
PROC: 4A133B1 Monitoring of Arterial Pressure, Peripheral, Percutaneous Approach (ICD-10-PCS; 2023-12-11)
PROC: 4A133J1 Monitoring of Arterial Pulse, Peripheral, Percutaneous Approach (ICD-10-PCS; 2023-12-11)
PROC: 05HN33Z Insertion of Infusion Device into Left Internal Jugular Vein, Percutaneous Approach (ICD-10-PCS; 2023-12-13)
PROC: B544ZZA Ultrasonography of Left Jugular Veins, Guidance (ICD-10-PCS; 2023-12-13)
PROC: 5A12012 Performance of Cardiac Output, Single, Manual (ICD-10-PCS; 2023-12-14)
DX: A41.9 Sepsis, unspecified organism (principal); J96.21 Acute and chronic respiratory failure with hypoxia; K72.00 Acute and subacute hepatic failure without coma; R65.21 Severe sepsis with septic shock; I50.23 Acute on chronic systolic (congestive) heart failure; J18.9 Pneumonia, unspecified organism; I13.0 Hypertensive heart and chronic kidney disease with heart failure and stage 1 through stage 4 chronic kidney disease, or unspecified chronic kidney disease; I42.0 Dilated cardiomyopathy; E27.40 Unspecified adrenocortical insufficiency; I46.9 Cardiac arrest, cause unspecified; E87.1 Hypo-osmolality and hyponatremia; E87.3 Alkalosis; I21.A1 Myocardial infarction type 2; J44.1 Chronic obstructive pulmonary disease with (acute) exacerbation; N17.9 Acute kidney failure, unspecified; J44.0 Chronic obstructive pulmonary disease with (acute) lower respiratory infection; E87.5 Hyperkalemia; F14.90 Cocaine use, unspecified, uncomplicated; F41.9 Anxiety disorder, unspecified; I44.7 Left bundle-branch block, unspecified; Z79.51 Long term (current) use of inhaled steroids; Z99.81 Dependence on supplemental oxygen; I16.0 Hypertensive urgency; I42.2 Other hypertrophic cardiomyopathy; J96.22 Acute and chronic respiratory failure with hypercapnia; I08.1 Rheumatic disorders of both mitral and tricuspid valves; G93.1 Anoxic brain damage, not elsewhere classified; E16.2 Hypoglycemia, unspecified; I47.19 Other supraventricular tachycardia; I48.91 Unspecified atrial fibrillation; I48.92 Unspecified atrial flutter; I25.10 Atherosclerotic heart disease of native coronary artery without angina pectoris; N18.1 Chronic kidney disease, stage 1; D64.9 Anemia, unspecified; Z79.899 Other long term (current) drug therapy; Z79.82 Long term (current) use of aspirin; Z79.84 Long term (current) use of oral hypoglycemic drugs; Z87.891 Personal history of nicotine dependence; Z91.199 Patient's noncompliance with other medical treatment and regimen due to unspecified reason
CPT/HCPCS: 36415; 36556; 36573; 36600; 71045; 71275; 76770; 76937; 80048; 80053; 80061; 80162; 80305; 81003; 82375; 82533; 82550; 82805; 82962; 83605; 83735; 83880; 84100; 84145; 84443; 84478; 84484; 85025; 85027; 85379; 86256; 86359; 86360; 86705; 86709; 87070; 87340; 87536; 93005; 94003; 94640; 94660; 97162; 97166; 97168; 99285; A6261; C1725; C1752; C1893; J0282; J0456; J0461; J0610; J0696; J1160; J1265; J1650; J1720; J1815; J1940; J2060; J2185; J2405; J2470; J2704; J2919; J3490; J7050; J7060; J7070; J7608; J7626; Q9967